=== PATIENT | male | born 1940 | race Caucasian/White ===

== ENCOUNTER → 2023-06-30 06:33 | Day surgery (SDC) | payer MEDICARE, OTHER, SELFPAY | LOC: GI 06:33 | PROVIDERS: ATTENDING PHYSICIAN Internal Medicine Gastroenterology | DX: Z12.11 Encounter for screening for malignant neoplasm of colon (principal); K57.30 Diverticulosis of large intestine without perforation or abscess without bleeding; D12.2 Benign neoplasm of ascending colon; D12.4 Benign neoplasm of descending colon; K63.5 Polyp of colon; R12 Heartburn; K44.9 Diaphragmatic hernia without obstruction or gangrene; K31.7 Polyp of stomach and duodenum; K31.89 Other diseases of stomach and duodenum; K21.00 Gastro-esophageal reflux disease with esophagitis, without bleeding; K31.A0 Gastric intestinal metaplasia, unspecified; Z86.010 Personal history of colon polyps | CPT/HCPCS: 45385; 43239; 88305 ==

== ENCOUNTER 2023-08-03 09:05 | Inpatient (IN) | payer MEDICARE, OTHER, SELFPAY ==
[2023-08-01 20:03] VITALS: BP 137/61
[2023-08-01 20:13] VITALS: BP 150/81
[2023-08-01 20:15] LABS: Glucose - Point of Care 180 mg/dl (70-99)
[2023-08-01 20:16] VITALS: BMI 26.1
--- NOTE | 2023-08-01 20:24 | EDRN ---
Patient brought back from triage and placed in gown and on monitor, NIH completed and Dr. Ricks aware of patient, symptoms did start around noon this afternoon, myself and Dr. ricks at bedside speaking with patient and family about history and
recent admission to [place].
[2023-08-01 20:33] LABS: % Basophils 0.6 % (0-2); % Eosinophils 2.9 % (0-6); % Immature Granulocytes 0.2 % (0-0.5); % Lymphocytes 9.2 % (20.5-51.1); % Neutrophils 79.1 % (42.2-75.2); Absolute Basophils 0.1 10^3/uL (0-0.2); Absolute Eosinophils 0.3 10^3/uL (0-0.7); Absolute Lymphocytes 0.8 10^3/uL (1.2-3.4); Absolute Monocytes 0.7 10^3/uL (0.1-0.6); Absolute Neutrophils 7.1 10^3/uL (1.4-6.5); Hemoglobin 10.5 g/dL (13.0-18.0); Mean Corpuscular Hgb 31.5 pg (27.0-31.0); Mean Corpuscular Volume 90.1 fL (80.0-94.0); Mean Platelet Volume 11.3 fL (7.4-10.4); Nucleated Red Blood Cells % 0 % (-); Platelet Count 177 10^3/uL (130-400); Red Blood Cell Count 3.33 10^6/uL (4.70-6.10); Red Cell Dist. Width 14.6 % (11.5-14.5)
--- NOTE | 2023-08-01 20:42 | ED.CVA ---
History of Present Illness
General
Chief Complaint: CVA/TIA Symptoms
Source: patient and family
Exam Limitations: none
Time Seen by Provider: 08/01/23 20:21
Onset of Stroke Symptoms
Onset of symptoms known: Yes
Date of onset of symptoms: 08/01/23
Travel History
Have you had any contact with someone who has COVID-19?: No
Do you have any symptoms of coronavirus? Fever > 100 degrees, chills, cough, shortness of breath, sore throat, loss of taste or smell, muscle aches, or headache?: No
History of Present Illness
History of Present Illness:
See MDM
Past History
Past History
ED Past Medical History: CAD, Cancer, HTN, Seizures and Other (Heart block)
ED Past Surgical History: Cardiac
Social History
Tobacco: Non-smoker
Alcohol: None
Drug: None
Personal:
Living: with family
Employment: Retired
Family History
Family History: Other
Phy Exam
Physical Exam
Physical Exam:
See MDM
Scores
NIH Stroke Score
Level of Consciousness: 0 - Alert
LOC Questions: 0-Answers both correctly
LOC Commands: 0-Performs both correctly
Best Horizontal Gaze: 0-Normal
Visual Ware: 0=Normal, no visual loss
Facial Palsy: 0=Normal, symmetrical
Motor - Right Arm: 0=No drift 10 seconds
Motor - Left Arm: 0=No drift 10 seconds
Motor - Right Le-No drift 5 seconds
Motor - Left Le-No drift 5 seconds
Limb Ataxia: 0-Absent
Sensation: 0-Normal
Best Language: 0-No aphasia
Dysarthria: 0-Normal
Extinction and Inattention: 0-No abnormality
Total Score:: 0
Course
Orders/Labs/Results
Orders:
Orders
08/01/23 20:23
Cardiac Monitoring- Treatment ONCE
IV Insert/Care/Rem.- Treatment PRN
Vital Signs As Directed
Frequency: Other
Weight As Directed
Frequency: Once
Comment: ZERO STRETCHER SCALE FOR ACCURATE WEIGHT
08/01/23 20:27
Complete Blood Count/With Diff Urgent
Comprehensive Metabolic Panel Urgent
Keppra (Levetiracetam) [S] Urgent
PTT Urgent
Prothrombin Time Urgent
Troponin I Urgent
08/01/23 20:40
CT Head & Neck Angio W/wo IV Urgent
Comment:
Reason For Exam: R hand weakness since 12 pm
08/01/23 22:29
NEUROLOGY CONSULT Routine
Consulting Provider: Ora Ceballos
Was physician already notified: Yes
Clopidogrel Bisulfate [Plavix] 75 mg PO NOW STA
Abnormal Lab Results
08/01/23 08/01/23
20:07 20:27
RBC 3.33 L 10^6/uL
(4.70-6.10)
Hgb 10.5 L g/dL
(13.0-18.0)
Hct 30.0 L %
(39.0-52.0)
MCH 31.5 H pg
(27.0-31.0)
RDW 14.6 H %
(11.5-14.5)
MPV 11.3 H fL
(7.4-10.4)
Absolute Neuts (auto) 7.1 H 10^3/uL
(1.4-6.5)
Absolute Lymphs (auto) 0.8 L 10^3/uL
(1.2-3.4)
Absolute Monos (auto) 0.7 H 10^3/uL
(0.1-0.6)
Neutrophils % 79.1 H %
(42.2-75.2)
Lymphocytes % 9.2 L %
(20.5-51.1)
BUN 41 H mg/dl
(9-20)
Creatinine 1.6 H mg/dL
(0.7-1.3)
Glucose 148 H mg/dl
(70-99)
Total Bilirubin 1.4 H mg/dl
(0.2-1.3)
POC Glucose 180 H mg/dl
(70-99)
08/01/23 20:27
08/01/23 20:27
Vital Signs
Initial and Last Documented VS:
Initial Vital Signs
Temp Pulse Resp BP Pulse Ox
98.1 F 72 16 137/61 98
08/01/23 20:03 08/01/23 20:03 08/01/23 20:03 08/01/23 20:03 08/01/23 20:03
Last Documented Vital Signs
Temp Pulse Resp BP Pulse Ox
98.1 F 74 16 126/63 98
08/01/23 20:03 08/01/23 21:30 08/01/23 21:30 08/01/23 21:00 08/01/23 21:30
MDM/Problems Addressed
Differential Diagnosis Includes:
HPI and MDM Narrative:
82-year-old male presenting with right hand weakness since 12 PM today. Family concerned about possible stroke. Patient was recently admitted to [facility]. Few weeks ago, patient felt weak and he had seizure activity. He was admitted and
had CT head performed. He was told that there was evidence of old strokes which is new to him. Family states that they performed LP and he was seen by neurology and had a EEG and started on Keppra. Patient was also started on amlodipine for
elevated blood pressure.
Patient has a recent diagnosis of prostate cancer. He is supposed to start radiation in the next week or so.
Physical exam
General: Well appearing and non-toxic
HEENT: protecting airway
Neck: appears supple
CV: No evidence of cyanosis
Resp: No accessory muscle use
Abd: Non-distended
Extremities: No deformities
Neuro: alert. 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 Sensation otherwise neurovascular intact
Psych: Normal affect
Skin: Intact
Problems Addressed including Acute and Chronic Conditions affecting care:
1. Strokelike symptoms
Acuity: acute
Prognosis: stable
Details: NIH is technically 0. He has no drift but he does have significant weakness with right hand grasp. Will obtain CT angiogram looking for evidence of stroke or possible spinal stenosis
Updates
CT angiogram head and neck negative. Case discussed with neurology. Will start Plavix as possible stroke and admit
Differential Diagnosis (but not limited to): Stroke, spinal stenosis
Testing considered: CT cervical spine
Drug therapy (if applicable): OTC meds, please see d/c instruction regarding Rx drugs
Amount and/or Complexity of Data Reviewed
Clinical info obtained from: Patient
External data reviewed: N/A
Labs I independently reviewed (but not limited to): Anemia, elevated creatinine
Radiology: The CT scan was personally and independently reviewed. In addition, official CT report reviewed.
Pulse Ox: not hypoxic
EKG independently reviewed: ventricular paced rhythm, wide QRS, no STEMI
Instrumentation Instructor: Paced rhythm
Critical Care: N/A
Risk of Complication:
Social Determinants of health: Good social support
Discussed with other providers: hospitalist, neurologist
Escalation of Care includes Admit/Obs: Given the concern for possible CVA, will admit
Occasional wrong word or 'sound a like' substitutions may have occurred due to the inherent limitations of voice recognition software. Read the chart carefully and recognize, using context, where substitutions have occurred.
*Critical Care Note
Total Time (30-74mins, 75-104mins- exclusive of procedures): Not Applicable
ED Attending Note
-
Portions of this chart may have been created with voice recognition software.� Occasional wrong word or��sound alike� substitutions may have occurred due to the inherent limitations of voice recognition software.
Discharge Plan
Departure
Patient Disposition: Admit
Date of Disposition: 08/01/23
Time of Disposition: 22:33
Admit to: Telemetry
Presentation/result/management discussed w/ accepting MD/DO: Hospitalist
Discharge Problem:
Right hand weakness
Prescriptions:
No Action
atorvastatin 80 mg Tablet
80 mg PO QPM
carvedilol 25 mg Tablet
25 mg PO BID
levetiracetam 500 mg Tablet
500 mg PO Q12H@0900,2100
aspirin 81 mg Tablet,Delayed Release (Dr/Ec)
81 mg PO DAILY
calcium carbonate [Caltrate 600] 600 mg calcium (1,500 mg) Tablet
600 mg PO BID
amlodipine 10 mg Tablet
10 mg PO DAILY
pantoprazole 40 mg Tablet,Delayed Release (Dr/Ec)
40 mg PO BID
ibuprofen [Advil] 200 mg Tablet
200 mg PO DAILYPRN PRN (Reason: mild pain)
ezetimibe 10 mg Tablet
10 mg PO DAILY
icosapent ethyl [Vascepa] 1 gram Capsule
2 g PO BID
Orgovyx 120 mg Tablet
120 mg PO DAILY
Iron + Vitamin C
1 tab PO DAILY
cholecalciferol (vitamin D3)
1 tab PO QPM
Referrals:
Abby Rashid DO [Family Provider] -
Interventions
Interventions:
*Risk Screen - Suicide Last Done: 08/01/23 20:03
*General Assessment Last Done: 08/01/23 20:03
*Neglect/Abuse Screening Last Done: 08/01/23 20:03
ED- Fall Risk Assessment Last Done: 08/01/23 20:24
ED- Pulmonary Assessment Last Done: 08/01/23 20:24
ED- Neurological Assessment Last Done: 08/01/23 20:24
ED- Cardiac Assessment Last Done: 08/01/23 20:24
Discharge Date and Time
Print Language: BURUNDIAN
[2023-08-01 20:44] LABS: APTT 30.3 Sec (23.4-35.0); INR 0.97; PT 12.7 Sec (11.4-14.6)
[2023-08-01 20:46] LABS: ALT (SGPT) 41 U/L (0-50); AST (SGOT) 35 U/L (17-59); Albumin 4.1 g/dl (3.5-5.0); Alkaline Phosphatase 58 U/L (38-126); Blood Urea Nitrogen 41 mg/dl (9-20); Calcium 9.1 mg/dl (8.4-10.2); Carbon Dioxide 26 mmol/L (22-30); Chloride 107 mmol/L (98-107); Estimated Creatinine Clearance 39 ml/min; Glucose 148 mg/dl (70-99); Sodium 139 mmol/L (135-145); Total Bilirubin 1.4 mg/dl (0.2-1.3); Total Protein 6.8 g/dl (6.3-8.2); eGFR 43.02
[2023-08-01 20:58] LABS: Troponin I 0.019 ng/ml
[2023-08-01 21:00] VITALS: BP 126/63
--- NOTE | 2023-08-01 21:25 | EDRN ---
Patient returned to room from CT, monitor all hooked up, patient pulled up in bed for better comfort, went over plan with patient and family more, asking about info once discharged, informed them that follow up and consults are generally placed on
paperwork, but can always get them info if needed. Plan is for patient to be admitted, patient and family do know that, patient with no complaints at this time, will continue to monitor.
--- NOTE | 2023-08-01 22:02 | EDRN ---
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
placed in belonging bag, no further needs, will continue to monitor.
--- NOTE | 2023-08-01 22:30 | EDRN ---
Patient ambulated to the restroom and back in bed resting comfortably, call esquivel in reach, family went home, placed number on white board incase needed.
--- NOTE | 2023-08-01 22:45 | HPS.HSE ---
Addendum entered and electronically signed by Arnulfo Eldridge DO 08/01/23 23:46:
Patient seen and examined independently. Agree with findings and plan as set forth by ALFONSO Puri.
Patient is an 82y M with PMH significant for ASCVD, hypertension, CKD and recent admission at [facility] for suspected seizure activity who presents to ED complaining of R hand weakness. Patient states that he was at his computer today around noon
when he began to have difficulty moving the mouse. He had significant weakness and ataxia in the R hand. No apparent weakness in the elbow or shoulder. No headache. No weakness or ataxia of the RLE. Patient was brought to the ED for further
evaluation and treatment. He was admitted at [facility] about 2 weeks ago and started on Keppra for presumed seizure activity. No other new medications, etc.
Patient denies any trauma, injury, etc.
Ass:
R Hand Weakness / Ataxia
ASCVD
Hypertension
CKD III
Suspected Seizure Disorder
Anemia
Heart Block s/p PPM
GERD
Prostate Cancer
Plan:
Observe overnight for further evaluation and treatment.
CTA done in the ED today without evidence of acute CVA.
Unable to obtain MRI due to incompatible pacemaker.
Plavix added to current regimen.
Neuro evaluation in the AM.
PT / OT evaluations.
? adverse effect of new medication / Keppra, but seems less likely given extremely focal nature of deficit.
Will continue Keppra for now. Follow for any seizure activity. Obtain records from [facility].
Follow for any new / worsening symptoms.
Work-up worsened anemia (Hgb 10 down from 12.9).
Original Note:
Family Physician
-
Family Physician: Abby Rashid DO
Chief Complaint
-
right hand weakness
History of Present Illness
82-year-old male complaining of right hand weakness operating the mouse trying to bet on a horse race at 12 PM today while .His family was concerned about a stroke. He had recent admission to [facility] because person came to his door
said he was drooling and looked like going to pass out . He apparently had a seizure in the ambulance on way to the hospital. When got to hospital he was agitated and confused .He had CT head showing old strokes he had LP performed he was also
seen by neurology and had nml EEG and was started on Keppra for seizures. He was also started on amlodipine for hypertension. His states that he has had memory impairment forgetting things on off since July 16. they have home nurses come
since d/c and a OT and Pt visit. Other past medical history includes CVA per CT at [facility], new onset seizures, prostate cancer new diagnosis few weeks ago except for radiation with [facility] [address] radiation oncology in [place] meeting next week, HTN,
CKD 3B, CAD/OR/CABG x 5 vessel 2018, heart block�permanent pacemaker, GERD.
Medical History
Past Medical History
Past Medical History: Reports Other
Additional Past Medical History:
Old CVA's per CT at [facility]
new onset seizures July 17, 2023 [facility]
prostate cancer new diagnosis few weeks ago except for radiation with [facility] [address] radiation oncology in [place] meeting next week
HTN
CKD 3B
CAD/OR/CABG x 5 vessel 2018
heart block�permanent pacemaker-has had 3 they are not MRI compatible
GERD.
Past Surgical History: Reports Other
Additional Past Surgical History:
Cardiac bypass x 5 in 2018 at [facility]
Mitral Valve replacement
Tonsillectomy
Cholecystectomy
[place] teeth extraction
Social History
Tobacco: Non-smoker
Alcohol: None
Drug: None
Personal:
Living: With Family ( natalie )
Employment: Retired
Family History
Family History: Other (dad pancreatic cancer, mother alzheimers, Brother - age 73 Brain hemorrhage 2018)
Allergies / Home Medications
Allergies reflects when Allergies were last updated in [employer].
Home Medications with original date entered in [employer]
Allergy/Medication List:
Allergies
Allergy/AdvReac Type Severity Reaction Status Date / Time
No Known Allergies Allergy Verified 04/19/22 14:05
Home Medications
Iron + Vitamin C 1 tab PO DAILY 08/01/23
amlodipine 10 mg tablet 10 mg PO DAILY 08/01/23
aspirin 81 mg tablet,delayed release 81 mg PO DAILY 08/01/23
atorvastatin 80 mg tablet 80 mg PO QPM 08/01/23
calcium carbonate 600 mg PO BID 08/01/23
carvedilol 25 mg tablet 25 mg PO BID 08/01/23
cholecalciferol (vitamin D3) 1 tab PO QPM 08/01/23
ezetimibe 10 mg tablet 10 mg PO DAILY 08/01/23
ibuprofen 200 mg tablet (Advil) 200 mg PO DAILYPRN PRN mild pain 08/01/23
icosapent ethyl 1 gram capsule (Vascepa) 2 g PO BID 08/01/23
levetiracetam 500 mg tablet 500 mg PO Q12H@0900,2100 08/01/23
pantoprazole 40 mg tablet,delayed release 40 mg PO BID 08/01/23
relugolix 120 mg tablet (Orgovyx) 120 mg PO DAILY 08/01/23
Review of Systems
-
History Source: Patient and Family ( )
Constitutional: Denies Fever or Chills
EENT: Denies Tearing or Runny Nose
Respiratory: Denies Cough or Trouble Breathing
Cardiac: Denies Chest Pain, Diaphoresis, Palpitations or Syncope
Abdomen/GI: Denies Abdominal Pain, Nausea, Vomiting, Diarrhea, Constipated, Bloody Stools or Black Stools
: Denies Dysuria, Frequency, Flank Pain or Incontinence
Musculoskeletal: Reports Other (Right wrist drop, weak grasp, discoordination right hand); Denies Joint Pain, Joint Swelling or Edema
Skin: Denies Itching or Rash
Neurological: Reports Other (Mild memory impairment unsure of some recent events since July 16 visit to [facility]); Denies Dizzy, Headache or Weakness
Endocrine: Reports No Symptoms
Hematologic/Lymphatic: Reports No Symptoms
Psych: Reports Calm
Physical Exam
Vital Signs
Vital Signs
Temp Pulse Resp BP Pulse Ox
98.1 F 74 16 126/63 98
08/01/23 20:03 08/01/23 21:30 08/01/23 21:30 08/01/23 21:00 08/01/23 21:30
Physical Exam
General: Comfortable and Conversant; No Pain, Fever or Chills
HEENT: NormoCephalic, Anicteric, Moist mucous membranes, PERRLA, [place] Conjunctivae, No Ptosis and Neck Nontender
Respiratory: Clear; No Wheezes, Rales or Rhonchi
Cardiac: S1/S2 and Regular Rhythm; No Murmur, Rub, Gallop or Peripheral Edema
Breast: Deferred by me
GI: Soft, Non Tender, Non Distended, Normal Bowel Sounds and No Hepatosplenomegaly
Genito-urinary: Deferred by me
Musculoskeletal: No Clubbing, No Cyanosis, No Edema and Other (Right wrist drop, difficulty extension of the right wrist and index finger, unable to touch fingers to thumb, weak grasp, discoordination right hand patient [id number])
Skin: Warm and Dry; No Rash
Neuro: AO x 3 (With some forgetfulness regarding recent medical events since July 17, 2023), Cranial Nerves Intact, No Sensory Deficits and Other (Right wrist drop, difficulty extension of the right wrist and index finger, unable to touch fingers to
thumb, weak grasp, discoordination right hand patient [id number]); No Slurred Speech, Facial Droop or Tremors
Psych: Calm
Laboratory Results
-
08/01/23 20:27
08/01/23 20:27
Laboratory Results
PT 12.7 Sec (11.4-14.6) 08/01/23 20:
INR 0.97 08/01/23 20:
APTT 30.3 Sec (23.4-35.0) 08/01/23 20:
Total Bilirubin 1.4 mg/dl (0.2-1.3) H 08/01/23 20:
AST 35 U/L (17-59) 08/01/23 20:
ALT 41 U/L (0-50) 08/01/23 20:
Alkaline Phosphatase 58 U/L (38-126) 08/01/23 20:
Troponin I 0.019 ng/ml 08/01/23:
Impression/Plan
-
Impression/plan:
Observation telemetry
#Right hand weakness concern for CVA/TIA
[id number]
#History of strokes�was revealed on CT head imaging at [facility]
-Plavix 75 mg given in ER ,continue 75 mg daily
-Continue aspirin 81 mg daily, atorvastatin 80 mg every afternoon, Vascepa 2 g twice daily, Zetia 10 mg daily
-Check lipid profile, HgbA1c
- Pt/Ot/case mgmt
Head and neck CTA: No evidence of acute intracranial abnormality
No significant stenosis in the common carotid arteries, carotid bulbs or proximal internal carotid arteries bilaterally
No large vessel occlusion of the intracranial circulation
No narrowing of the vertebral or basilar arteries
#History recent New onset seizures in ambulance on way to hospital
Was treated at [facility] but per had normal EEG
-Continue Keppra 500 mg every 12 hours, check Keppra level
# Current Prostate cancer - New dx at [facility]
Pet scan nml per
had tattoo hawkins made on Thursday 4 days ago for upcoming radiation
-Due to start radiation next week in [place] radiation Onc at [place]
-cont Relugolix 120 mg daily
#HTN�benign
126/63
-Continue carvedilol 25 mg twice daily, amlodipine 10 mg daily
#HLD
-check lipid profile
-Continue Vascepa 2 g p.o. twice daily, Zetia 10 mg daily, atorvastatin 80 mg every afternoon
#CKD 3B
-Creat 1.6 is at baseline
-follows with Cl[facility]her in [place]
#GERD
-Continue Protonix 40 mg twice daily
#CAD/OR/CABG x 5 vessel 2018
-Continue aspirin 81 mg daily, Lipitor, beta-claudia
#Permanent pacemaker/Hx heart block
3rd Pacemaker NOT MRI compatible per Pt and
#Normocytic anemia
Hgb 10.5, MCV 90.1(was prior 12.9 in April 2022)
dvt proph
scd's
Full code
[2023-08-01] MEDS: PLAVIX 75 MG PO (22:52)
[2023-08-01 23:01] VITALS: BP 153/73
--- NOTE | 2023-08-01 23:03 | EDRN ---
Hospitalist at bedside working on admission orders.
[2023-08-02] VITALS (10 sets, daily range): BP systolic 109–149; BP diastolic 55–75; PULSE 71; O2SAT 98; BMI 24.9
--- NOTE | 2023-08-02 00:41 | EDRN ---
Patient resting, waiting on room assignment, call esquivel in reach.
--- NOTE | 2023-08-02 00:48 | EDRN ---
No Delay sent to the floor, patient remains resting comfortably with call esquivel in reach.
--- NOTE | 2023-08-02 04:53 | PTCARENOTE ---
Patient arrived via stretcher from ED, patient ambulated to bed with assistance. See chart for admission, nursing shift assessment and further details.
[2023-08-02 07:54] LABS: % Basophils 0.4 % (0-2); % Eosinophils 3.1 % (0-6); % Immature Granulocytes 0.5 % (0-0.5); % Lymphocytes 12.3 % (20.5-51.1); % Monocytes 7.4 % (1.7-9.3); % Neutrophils 76.3 % (42.2-75.2); Absolute Eosinophils 0.3 10^3/uL (0-0.7); Absolute Monocytes 0.6 10^3/uL (0.1-0.6); Absolute Neutrophils 6.2 10^3/uL (1.4-6.5); Hematocrit 27.5 % (39.0-52.0); Hemoglobin 9.3 g/dL (13.0-18.0); Mean Corp Hgb Conc. 33.8 g/dL (33.0-37.0); Mean Corpuscular Hgb 30.6 pg (27.0-31.0); Mean Corpuscular Volume 90.5 fL (80.0-94.0); Mean Platelet Volume 12.1 fL (7.4-10.4); Nucleated Red Blood Cells % 0 % (-); Platelet Count 143 10^3/uL (130-400); Red Blood Cell Count 3.04 10^6/uL (4.70-6.10); Red Cell Dist. Width 14.6 % (11.5-14.5); White Blood Cell Count 8.1 10^3/uL (4.8-10.8)
[2023-08-02 08:09] LABS: Blood Urea Nitrogen 36 mg/dl (9-20); Carbon Dioxide 23 mmol/L (22-30); Chloride 109 mmol/L (98-107); Estimated Creatinine Clearance 41 ml/min; Glucose 126 mg/dl (70-99); HDL Cholesterol 70 mg/dl; LDL Cholesterol, Calculated 42 mg/dl; Potassium 4.1 mmol/L (3.5-5.1); Sodium 138 mmol/L (135-145); Total Cholesterol 126 mg/dl (50-199); Triglyceride 74 mg/dl (10-149); Very Low Density Lipoprotein 14 mg/dl (0-30); eGFR 46.48
[2023-08-02 08:10] LABS: Iron 69 ug/dl (49-181)
[2023-08-02] MEDS: FEOSOL 325 MG PO (08:22)
[2023-08-02] MEDS: PROTONIX 40 MG PO ×2 (08:22→20:22)
[2023-08-02] MEDS: NORVASC 10 MG PO (08:22)
[2023-08-02] MEDS: ZETIA 10 MG PO (08:22)
[2023-08-02] MEDS: OSCAL CAL 500 500 MG PO ×2 (08:22→20:22)
[2023-08-02] MEDS: PLAVIX 75 MG PO (08:22)
[2023-08-02] MEDS: VITAMIN C 500 MG PO (08:22)
[2023-08-02] MEDS: ASPIR LOW (ENTERIC COATED) 81 MG PO (08:22)
[2023-08-02] MEDS: COREG 25 MG PO ×2 (08:24→20:22)
[2023-08-02] MEDS: KEPPRA 500 MG PO ×2 (08:24→21:21)
[2023-08-02 08:27] LABS: Percent Saturation 23 % (20-50); Total Iron Binding Capacity 296 ug/dl (261-462)
[2023-08-02 08:55] LABS: VerifyNow Aspirin 535 ARU
--- NOTE | 2023-08-02 10:47 | W.PN.HOSP.TC ---
Today's Communication/Plan
-
.
Assessment / Plan
Assessment / Plan
Physical Exam
General: Comfortable and Conversant; No Pain, Fever or Chills, chronically ill looking.
HEENT: Normocephalic, Anicteric, Moist mucous membranes, PERRLA, [place] Conjunctivae, No Ptosis and Neck Nontender
Respiratory: Clear; No Wheezes, Rales or Rhonchi
Cardiac: S1/S2
GI: Soft, Non Tender, Non Distended, Normal Bowel Sounds and No Hepatosplenomegaly
Genito-urinary: NO Wu.
Musculoskeletal: No Clubbing, No Cyanosis, No Edema.
Skin: Warm and Dry; No Rash
Neuro: Awake, alert, could not recall the year and had trouble remembering name of the hospital. He could not recall details about his medical history, he knew [place] state. He followed commands.
Psych, calm, pleasant, no agitation.
#Right hand weakness concern for CVA/TIA
[id number]
#History of strokes�was revealed on CT head imaging at [facility]
-Plavix 75 mg given in ER ,continue 75 mg daily
-Continue aspirin 81 mg daily, atorvastatin 80 mg every afternoon, Vascepa 2 g twice daily, Zetia 10 mg daily
- LDL 42
HgbA1c is pending
- Pt/Ot/case mgmt
Appreciate neurology input
Head and neck CTA: No evidence of acute intracranial abnormality
No significant stenosis in the common carotid arteries, carotid bulbs or proximal internal carotid arteries bilaterally
No large vessel occlusion of the intracranial circulation
No narrowing of the vertebral or basilar arteries
#History recent New onset seizures in ambulance on way to hospital
Was treated at [facility] but per had normal EEG
-Continue Keppra 500 mg every 12 hours, check Keppra level
# Current Prostate cancer - New dx at [facility]
Pet scan nml per
had tattoo hawkins made on Thursday 4 days ago for upcoming radiation
-Due to start radiation next week in [place] radiation Onc at [place]
-cont Relugolix 120 mg daily
#HTN�benign
125/59
-Continue carvedilol 25 mg twice daily, amlodipine 10 mg daily
#HLD
LDL 42
-Continue Vascepa 2 g p.o. twice daily, Zetia 10 mg daily, atorvastatin 80 mg every afternoon
#CKD 3B
-Creat 1.6 is at baseline. Today is 1.5
-follows with [facility] Install[facility] Supervisor in [place]
#GERD
-Continue Protonix 40 mg twice daily
#CAD/NE/CABG x 5 vessel 2018
No chest pain
-Continue aspirin 81 mg daily, Lipitor, beta-claudia
#Permanent pacemaker/Hx heart block
3rd Pacemaker NOT MRI compatible per Pt and
#Normocytic anemia
Known GI bleeding, suspect chronic blood loss anemia.
Hgb 10.5, MCV 90.1(was prior 12.9 in April 2022)
dvt proph
scd's
Full code
Total time spent to see the patient, examine the patient on the floor, review data and lab results, discuss treatment plan with patient, and nursing staff around 55 minutes
Anticipated Discharge: 24 - 48 hours
Subjective/Interval History
-
Date of Service: August 02, 2023
He reports memory issues
No chest pain
No sob
Objective Data
-
Labs:
Laboratory Results
08/02/23
07:03
WBC 8.1
Hgb 9.3 L
Hct 27.5 L
Plt Count 143
Sodium 138
Potassium 4.1
Chloride 109 H
Carbon Dioxide 23
BUN 36 H
Creatinine 1.5 H
Glucose 126 H
Calcium 9.0
Vital Signs:
Vital Signs
Temp Pulse Resp BP Pulse Ox
98.4 F 71 17 125/59 97
08/02/23 07:25 08/02/23 08:22 08/02/23 07:25 08/02/23 08:22 08/02/23 07:25
I&O
08/01/23 08/02/23 08/03/23
06:59 06:59 06:59
Intake Total 30 / 30
Output Total 650 / 650
Balance -620 / -620
--- NOTE | 2023-08-02 11:54 | CON.NEURO4 ---
Consultation - Neurology 4
-
CONSULTING PHYSICIAN: Lin
REFERRING PHYSICIAN: Rambo
DICTATED BY: Lin
DATE/TIME OF REQUEST: 08/01/23 late evening
DATE/TIME OF CONSULTATION: 08/02/23
Reason for Consultation: stroke
History of Present Illness:
82-year-old male with old strokes seen on head CT at [facility] and new onset seizure earlier this month diagnosed at [facility] now on Keppra admitted after abrupt onset of right hand weakness yesterday around noon. He was using a computer when it
started and he had difficulty moving his mouse. He also experienced some ataxia with the right hand. No other focal neurological deficits. No weakness in the rest of the right arm or right leg. Previous strokes were seen on head CT incidentally
but he denies any symptoms with them. No associated confusion or seizure-like activity. He has been compliant with Keppra since recently being diagnosed with seizure at [facility] and has a follow-up appointment with [facility]
in October. He was out of the window for TNK upon arrival in the ER. His NIH stroke scale was 0.
PMH:
Old CVA on CT at [facility]
new onset seizures diagnosed July 17, 2023 at [facility]
prostate cancer
HTN
CKD 3B
CAD/MT/CABG x 5 vessel 2017
heart block�permanent pacemaker
GERD.
PSH:
Cardiac bypass x 5 in 2018 at [place]
Mitral Valve replacement
Tonsillectomy
Cholecystectomy
[place] teeth extraction
Social History
Tobacco: Non-smoker
Alcohol: None
Drug: None
Personal:
Living: With Family ( natalie )
Employment: Retired
Family History
Family History: dad with pancreatic cancer, mother with alzheimers, brother with ICH
Allergies
No Known Allergies Allergy (Verified 04/19/22 14:05)
Home Medications
�Medication �Instructions �Recorded
Iron + Vitamin C 1 tab PO DAILY Supplement 08/01/23
amlodipine 10 mg tablet 10 mg PO DAILY Blood Pressure 08/01/23
aspirin 81 mg tablet,delayed 81 mg PO DAILY Blood Clot 08/01/23
release Prevention/Tx
atorvastatin 80 mg tablet 80 mg PO QPM High Cholesterol 08/01/23
calcium carbonate 600 mg PO BID Supplement 08/01/23
carvedilol 25 mg tablet 25 mg PO BID Blood Pressure 08/01/23
cholecalciferol (vitamin D3) 1 tab PO QPM Supplement 08/01/23
ezetimibe 10 mg tablet 10 mg PO DAILY High Cholesterol 08/01/23
ibuprofen 200 mg tablet (Advil) 200 mg PO DAILYPRN PRN mild pain 08/01/23
icosapent ethyl 1 gram capsule 2 g PO BID Antilipemic Agent, 08/01/23
(Vascepa) [place]-
levetiracetam 500 mg tablet 500 mg PO Q12H@0900,2100 Seizures 08/01/23
pantoprazole 40 mg tablet,delayed 40 mg PO BID GERD 08/01/23
release
relugolix 120 mg tablet (Orgovyx) 120 mg PO DAILY Antineoplastic 08/01/23
Agent
Review of Symptoms:
Patient denies any fever, headache, chest pain, shortness of breath, GI or symptoms.
�Per the HPI.�All systems are reviewed negative except above.
Vital Signs
Temp Pulse Resp BP Pulse Ox
98.4 F 71 17 125/59 97
08/02/23 07:25 08/02/23 08:22 08/02/23 07:25 08/02/23 08:22 08/02/23 07:25
Lab Results
08/02/23 07:03
08/02/23 07:03
PT 12.7 Sec (11.4-14.6) 08/01/23 20:27
INR 0.97 08/01/23 20:27
APTT 30.3 Sec (23.4-35.0) 08/01/23 20:27
Sodium 138 mmol/L (135-145) 08/02/23 07:03
Potassium 4.1 mmol/L (3.5-5.1) 08/02/23 07:03
BUN 36 mg/dl (9-20) H 08/02/23 07:03
Glucose 126 mg/dl (70-99) H 08/02/23 07:03
Calcium 9.0 mg/dl (8.4-10.2) 08/02/23 07:03
LDL Cholesterol, Calc 42 mg/dl 08/02/23 07:03
Physical Exam:
The patient is afebrile, heart sounds S1 and S2 are regular, and chest is clear to auscultation bilaterally.
NIH Stroke Scale:
I performed the NIH stroke scale on the patient on 08/01/20 at 1300. The patient scored 0 points on the NIH stroke scale assessment.
Neurologic Examination:
The patient is awake, alert and oriented x 3. (He/She) is able to follow commands and answer questions appropriately. There is no aphasia or dysarthria. On cranial nerve assessment, pupils are 3 mm bilateral, round and reactive to light and
accommodation. Visual bethea are full. Extraocular movements are intact. Facial sensations are intact and bilaterally symmetrical, there is no facial asymmetry. Hearing is intact bilaterally to normal conversation volume. Tongue palate and uvula
are midline. Sternocleidomastoid strengths are full bilaterally. Motor strengths are 5/5 bilateral upper and lower extremities on medical research [place] scale beyond R hand assignment desk editor weakness, 3/5, and R wrist flexion/extension 2/5. There is no drift
or involuntary movement noted. Deep tendon reflexes are 1+ bilateral upper and lower extremities and Babinski is absent bilaterally. Sensations of pain, touch, temperature and vibration are intact and bilaterally symmetrical. There was no extinction
noted on double simultaneous stimulation. Coordination is intact by finger to nose bilaterally.
Neuro Imaging:
CTA head/neck:
No evidence of acute intracranial abnormality. If there remains high clinical concern for acute infarction and further imaging evaluation is desired, consideration for MRI, if there are no contraindications.
No evidence for hemodynamically significant stenosis involving the common carotid arteries, carotid bulbs, or proximal internal carotid arteries bilaterally.
No evidence for large vessel occlusion of the intracranial circulation.
No significant narrowing of the vertebral or basilar arteries. No significant narrowing of the posterior cerebral arteries.
Impression:
LORETO ZAPATA is a 82 year old M who has presented to the hospital with isolated R hand weakness that began yesterday around noon.
Differentials for the patient's presentation include:
1. stroke
2. mononeuropathy
3. cervical radiculopathy
Patient has the following risk factors for their symptoms: age, prostate cancer, CAD, htn, CKD
IV Tenecteplase/IAT candidacy: not a candidate given out of window, low NIHSS, no clot on CTA
Recommendations:
-check MRI brain without contrast to evaluate for stroke--need to wait until Thursday as he has a pacer; consider Cspine imaging if MRI brain negative for stroke; sent pacer info to MRI techs; MRI dept will research compatibility tomorrow
-CTA reviewed; see above
-BP goal is normotension.
-continue ASA 81mg daily, Plavix added as well.
- Hemoglobin A1C is mildly elevated at 6.0. Goal is normoglycemia.
- continue atorvastatin 80 mg by mouth daily at bedtime and Zetia; on both at home. LDL at goal at 42. Goal LDL after stroke is <70.
-check echo if MRI + for stroke
-PT/OT/ST evaluations
- DVT prophylaxis
-continue neurochecks
-continue Keppra; request records from [facility]
Discussed patient care with: patient, Dr. Ricks
--- NOTE | 2023-08-02 12:43 | CM ---
Addendum entered by Rajwinder Solitario 08/02/23 13:00:
Spoke with pt and family - requested [facility] - will send referral in [facility]
Plan - anticipate acute rehab when medically ready
Original Note:
Met with pt and his at bedside
Pt lives with his in a one story home
Some assist needed with ADL's, ambulates with rolling walker
DME - rolling walker, shower chair, elevated toilet seat, grab bars in shower and at toilet
SNF - no past hx
HH - Past [facility] PT/OT/RN
Has ride at d/c
PCP - Dr Marco A Rashid
Pharm - [facility]
PT/OT recommending Acute rehab - family given option list of rehabs
Plan - anticipate acute rehab when medically ready
--- NOTE | 2023-08-02 15:32 | PTCARENOTE ---
Pt is alert and oriented x3, but can be a bit forgetful at times. Denies any pain. Tolerating diet well. Pt is an assist x1 OOB with the walker and has been ambulating to the bathroom, sometimes gait a bit unsteady. NIH remains a 1. VSS. Pt
currently resting in bed. Family at the bedside. Call esquivel is within reach.
[2023-08-02] MEDS: LIPITOR 80 MG PO (17:00)
[2023-08-03] VITALS (7 sets, daily range): BP systolic 109–157; BP diastolic 49–65; PULSE 69; O2SAT 100
[2023-08-03 06:58] LABS: Hematocrit 29.6 % (39.0-52.0); Mean Corp Hgb Conc. 33.8 g/dL (33.0-37.0); Mean Corpuscular Hgb 31.3 pg (27.0-31.0); Mean Corpuscular Volume 92.8 fL (80.0-94.0); Platelet Count 147 10^3/uL (130-400); Red Blood Cell Count 3.19 10^6/uL (4.70-6.10); Red Cell Dist. Width 14.5 % (11.5-14.5); White Blood Cell Count 7.6 10^3/uL (4.8-10.8)
[2023-08-03 07:09] LABS: ALT (SGPT) 36 U/L (0-50); AST (SGOT) 31 U/L (17-59); Albumin 3.3 g/dl (3.5-5.0); Alkaline Phosphatase 55 U/L (38-126); Blood Urea Nitrogen 40 mg/dl (9-20); Carbon Dioxide 24 mmol/L (22-30); Chloride 109 mmol/L (98-107); Estimated Creatinine Clearance 34 ml/min; Glucose 125 mg/dl (70-99); Potassium 4.5 mmol/L (3.5-5.1); Sodium 138 mmol/L (135-145); Total Bilirubin 1.2 mg/dl (0.2-1.3); Total Protein 5.8 g/dl (6.3-8.2); eGFR 37.35
--- NOTE | 2023-08-03 07:44 | W.PN.NEURO.1 ---
Today's Communication / Plan
-
Due to the patient's recent seizure and now suggestion of left hemispheric stroke, consider CT with contrast as the patient is not a candidate for MRI of the brain due to his pacemaker
continue ASA 81mg daily, Plavix added as well, and both should be continued for total of 21 days, then clopidogrel alone
Neuro Assessment/Plan
Assessment
Neuro Imaging:
CTA head/neck:
No evidence of acute intracranial abnormality. No evidence for hemodynamically significant stenosis involving the common carotid arteries, carotid bulbs, or proximal internal carotid arteries bilaterally.
Impression:
LORETO ZAPATA is a 82 year old M who has presented to the hospital with isolated R hand weakness that began yesterday around noon.
Differentials for the patient's presentation include:
1. stroke (most likely), or alternative intracranial abnormality
2. mononeuropathy
3. cervical radiculopathy
Plan
Recommendations:
Due to the patient's recent seizure and now suggestion of left hemispheric stroke, consider CT with contrast as the patient is not a candidate for MRI of the brain due to his pacemaker
BP goal is normotension.
continue ASA 81mg daily, Plavix added as well, and both should be continued for total of 21 days, then clopidogrel alone
Goal is normoglycemia.
continue atorvastatin 80 mg by mouth daily at bedtime and Zetia; on both at home. LDL at goal at 42.
PT/OT/ST evaluations
continue Keppra; request records from [facility]
Will follow as outpatient.
Subjective/Objective
Subjective Data
Date of Service: August 03, 2023
Minimal improvement in right hand weakness.
Objective Data
Vital Signs
Temp Pulse Resp BP Pulse Ox
36.4 C 74 18 124/61 99
08/03/23 07:36 08/03/23 07:36 08/03/23 07:36 08/03/23 07:36 08/03/23 07:36
Lab Results
08/03/23 06:17
08/03/23 06:17
PT 12.7 Sec (11.4-14.6) 08/01/23 20:27
INR 0.97 08/01/23 20:27
APTT 30.3 Sec (23.4-35.0) 08/01/23 20:27
Sodium 138 mmol/L (135-145) 08/03/23 06:17
Potassium 4.5 mmol/L (3.5-5.1) 08/03/23 06:17
BUN 40 mg/dl (9-20) H 08/03/23 06:17
Glucose 125 mg/dl (70-99) H 08/03/23 06:17
Calcium 9.0 mg/dl (8.4-10.2) 08/03/23 06:17
LDL Cholesterol, Calc 42 mg/dl 08/02/23 07:03
Patient Allergies
No Known Allergies Allergy (Verified 04/19/22 14:05)
Review of Systems
-
History Source: Patient and Family
All other systems: Reviewed and negative
EENT: Negative Decreased Vision
Neuro: Negative Dizzy or Headache
Physical Exam
-
General: No Apparent Distress and Appears Stated Age
Eyes: Round OU, Brady Conjunctivae and No Ptosis
HEENT: Anicteric and Moist Mucous Membranes
Neck: Full Range of Motion
Respiratory: No Dyspnea
Cardiac: No JVD
GI: Non-distended
Skin: Unremarkable
Extremities: No Clubbing, No Cyanosis and No Edema
Psych: Intact Judgement/Insight
Extended Neurological Exam
Mood & Affect: Mood Unremarkable and Affect Unremarkable
Attention Span & Concentration: Awake, Alert, Interactive and Mild Difficulty with 2 Step Request
Memory: Unremarkable
Tremor: Hand Tremor Absent and Head Tremor Absent
Speech: Quality Unremarkable and Quantity Unremarkable
Cranial Nerve II: Left Eye: Pupillary Size Unremarkable and Visual Ware Grossly Intact
Cranial Nerve II: Right Eye: Pupillary Size Unremarkable and Visual Ware Grossly Intact
Cranial Nerves III, IV, : Extraocular Movement: Grossly Intact
Cranial Nerve V: Facial Sensation: Unable to Assess
Cranial Nerve VII: Facial Symmetry: Normal Facial Symmetry
Cranial Nerve VIII: Hearing: Unremarkable Hearing to Normal Conversational Volume
Muscle Strength, Overall: Full in Upper Extremities (Except for right hand distal weakness, 4 out of 5)
Muscle Bulk & Tone: Bulk Unremarkable and Tone Unremarkable
Pronator Drift: No Drift in Upper Extremities
Touch Sensation: Unremarkable
Coordination: [id number] Testing Unremarkable
Data Reviewed
-
CT-A: Report Reviewed
CT Head: Report Reviewed
Labs: Report Reviewed
Lipid Profile: Report Reviewed
Reviewed with: Physician, Nurse Practioner, Patient and Family
Old Records: Summarized
Past History
Past History
ED Past Medical History: CAD, Cancer (prostate), CVA, GERD, HTN, Seizures and Other (Heart block); Negative Renal failure
ED Past Surgical History: Cardiac (Pacemaker, CABG x 2017)
Social History
Tobacco: Non-smoker
Alcohol: None
Drug: None
Personal:
Living: with family
Employment: Retired
Family History
Family History: Other (reviewed and noncontributory)
Medications
-
Medications:
Generic Name Dose Route Start Last Admin
Trade Name Freq PRN Reason Stop Dose Admin
Acetaminophen 650 mg 08/02/23 01:28
Acetaminophen 650 Mg Rectal Suppository RECTAL 08/30/23 01:27
Q4HPRN PRN
[place], mild pain, or temp >100.4F
Acetaminophen 650 mg 08/02/23 01:28
Acetaminophen 325 Mg Tablet PO 08/30/23 01:27
Q4HPRN PRN
[place], mild pain, or temp >100.4F
Amlodipine Besylate 10 mg 08/02/23 08:00 08/02/23 08:22
Amlodipine 10 Mg Tablet PO 08/30/23 07:59 10 mg
DAILY AMANDA Administration
Ascorbic Acid 500 mg 08/02/23 08:00 08/02/23 08:22
Ascorbic Acid 500 Mg Tablet PO 08/30/23 07:59 500 mg
DAILY AMANDA Administration
Aspirin 81 mg 08/02/23 08:00 08/02/23 08:22
Aspirin 81 Mg (Enteric Coated) Tablet PO 08/30/23 07:59 81 mg
DAILY AMANDA Administration
Atorvastatin Calcium 80 mg 08/02/23 18:00 08/02/23 17:00
Atorvastatin (Lipitor) 80 Mg Tablet PO 08/30/23 17:59 80 mg
QPM AMANDA Administration
Calcium Carbonate 500 mg 08/02/23 08:00 08/02/23 20:22
Calcium Carbonate 500 Mg Tablet PO 08/30/23 07:59 500 mg
BID AMANDA Administration
Carvedilol 25 mg 08/02/23 08:00 08/02/23 20:22
Carvedilol 25 Mg Tablet PO 08/30/23 07:59 25 mg
BID AMANDA Administration
Clopidogrel Bisulfate 75 mg 08/02/23 08:00 08/02/23 08:22
Clopidogrel 75 Mg Tablet PO 08/30/23 07:59 75 mg
DAILY AMANDA Administration
Ezetimibe 10 mg 08/02/23 08:00 08/02/23 08:22
Ezetimibe (Zetia) 10 Mg Tablet PO 08/30/23 07:59 10 mg
DAILY AMANDA Administration
Ferrous Sulfate 325 mg 08/02/23 08:00 08/02/23 08:22
Ferrous Sulfate 325 Mg Tablet PO 08/30/23 07:59 325 mg
DAILY AMANDA Administration
Levetiracetam 500 mg 08/02/23 09:00 08/02/23 21:21
Levetiracetam 500 Mg Regular Release Tablet PO 08/30/23 08:59 500 mg
Q12H AMANDA Administration
Non-Formulary Medication 2 grams 08/02/23 08:00
Icosapent Ethyl [Vascepa] PO 08/30/23 07:59
BID AMANDA
Non-Formulary Medication 120 mg 08/02/23 08:00
Relugolix [Orgovyx] PO 08/30/23 07:59
DAILY AMANDA
Pantoprazole Sodium 40 mg 08/02/23 08:00 08/02/23 20:22
Pantoprazole 40 Mg Delayed Release Tablet PO 08/30/23 07:59 40 mg
BID AMANDA Administration
Sodium Chloride 0 flush 08/02/23 02:00
Sodium Chloride 0.9% (Flush) Syringe IV 08/30/23 01:59
PER PROTOCOL AMANDA
--- NOTE | 2023-08-03 08:34 | W.PN.HOSP.TC ---
Today's Communication/Plan
-
[facility] placement pending
Appreciate neurology and physiatry recommendations
Contiue DAPT
Assessment / Plan
Assessment / Plan
Physical Exam
General: Not in acute distress
HEENT: Normocephalic
Respiratory: Clear to Auscultation Bilaterally
Cardiac: S1/S2. RRR.
GI: Soft, Non Tender, Non Distended, Normal Bowel Sounds
Musculoskeletal: No Cyanosis, No Edema.
Skin: Warm and Dry
Neuro: Awake, alert, oriented. Cranial Nerves 2 through 12 grossly intact. RT hand sales assistant displays weakness and right wrist flexion/extension weak.
Psych, calm, pleasant, no agitation.
Assessment/Plan
#Right hand weakness concern for CVA/TIA vs. Compression Neuropathy
[id number]
#History of strokes�was revealed on CT head imaging at [facility]
-Plavix 75 mg given in ER ,continue 75 mg daily: 21 days of DAPT followed by Clopidogrel alone, as per Dr. Jean-Claude Winters Text message today
-Continue aspirin 81 mg daily, atorvastatin 80 mg every afternoon, Vascepa 2 g twice daily, Zetia 10 mg daily
- LDL 42
HgbA1c is pending
- PT/OT/Case mgmt
-Appreciate neurology input
-Patient cannot have an MRI as his pacemaker is NOT MRI conditional
-Neurology will order repeat CT scan today -- no acute stroke seen
#History recent New onset seizures in ambulance on way to hospital
-Was treated at [facility] but per had normal EEG
-Continue Keppra 500 mg every 12 hours
-Follow-up Keppra level
# Current Prostate cancer - New dx at [facility]
Pet scan nml per
had tattoo hawkins made on Thursday 4 days ago for upcoming radiation
-Due to start radiation next week in [place] radiation [facility]c at [place]
-Hold Relugolix 120 mg daily due to small risk of stroke -- patient's Iva mentioned (on August 03, 2023) that she will check with patient's oncologist about holding vs. resuming Relugolix
#HTN�benign
-Continue carvedilol 25 mg twice daily, amlodipine 10 mg daily
#HLD
LDL 42
-Continue Vascepa 2 g p.o. twice daily, Zetia 10 mg daily, atorvastatin 80 mg every afternoon
#CKD 3B
-Creat 1.6 is at baseline. Today is 1.5
-follows with [facility] in [place]
#GERD
-Continue Protonix 40 mg twice daily
#CAD/[place]/CABG x 5 vessel 2018
No chest pain
-Continue aspirin 81 mg daily, Lipitor, beta-claudia
#Permanent pacemaker/Hx heart block
3rd Pacemaker NOT MRI compatible per Pt and
#Normocytic anemia
Known GI bleeding, suspect chronic blood loss anemia.
Hgb 10.5, MCV 90.1(was prior 12.9 in April 2022)
dvt proph
scd's
Code Status: Full code
Diet: Regular Diet (as per patient and his 's request)
Anticipated Discharge: 24 - 48 hours
Subjective/Interval History
-
Date of Service: August 03, 2023
Patient was seen and examined. He reported no new symptoms or complaints, still with right hand weakness.
Objective Data
-
Labs:
Laboratory Results
08/03/23
06:17
WBC 7.6
Hgb 10.0 L
Hct 29.6 L
Plt Count 147
Sodium 138
Potassium 4.5
Chloride 109 H
Carbon Dioxide 24
BUN 40 H
Creatinine 1.8 H
Glucose 125 H
Calcium 9.0
Total Bilirubin 1.2
AST 31
ALT 36
Alkaline Phosphatase 55
Vital Signs:
Vital Signs
Temp Pulse Resp BP Pulse Ox
97.5 F 74 18 124/61 99
08/03/23 07:36 08/03/23 07:36 08/03/23 07:36 08/03/23 07:36 08/03/23 07:36
I&O
08/02/23 08/03/23 08/04/23
06:59 06:59 06:59
Intake Total 30 / 30 1140 / 1140
Output Total 650 / 650 800 / 800
Balance -620 / -620 340 / 340
[2023-08-03] MEDS: KEPPRA 500 MG PO ×2 (10:01→21:03)
[2023-08-03] MEDS: ASPIR LOW (ENTERIC COATED) 81 MG PO (10:01)
[2023-08-03] MEDS: OSCAL CAL 500 500 MG PO ×2 (10:01→21:01)
[2023-08-03] MEDS: PROTONIX 40 MG PO ×2 (10:01→21:01)
[2023-08-03] MEDS: NORVASC 10 MG PO (10:01)
[2023-08-03] MEDS: FEOSOL 325 MG PO (10:02)
[2023-08-03] MEDS: PLAVIX 75 MG PO (10:02)
[2023-08-03] MEDS: VITAMIN C 500 MG PO (10:02)
[2023-08-03] MEDS: COREG 25 MG PO ×2 (10:02→21:03)
[2023-08-03] MEDS: ZETIA 10 MG PO (10:38)
--- NOTE | 2023-08-03 13:07 | PTOTSP ---
SPEECH THERAPY SPEECH/LANGUAGE/COGNITIVE COMMUNICATION AND SWALLOW EVALUATION:
Patient exhibits grossly functional oropharyngeal swallow at this time. Patient remains at risk for dysphagia/aspiration given suspected acute CVA and prior CVAs. Recommend continue Regular texture diet, thin liquids. Meds whole with liquid as best
tolerated. Aspiration precautions including: Upright positioning; Small single sips/bites; Slow rate of intake; Assistance with set-up and supervision as needed; Remain upright 30 minutes after eating/drinking. Speech therapy to follow, assess diet
tolerance and modify as appropriate, and provide education regarding aspiration risks/precautions.
Patient exhibits mild-moderate expressive/receptive language and moderate cognitive-communication impairments characterized by: Word finding difficulties/anomia, Reduced STM, Reduced higher level executive functioning skills, Reduced orientation,
Reduced ability to follow complex directions and answer complex y/n questions, delayed processing speed, reduced attention to structured tasks and conversation, and impaired judgement/safety awareness. Patient would benefit from intensive speech
therapy services at the acute care level and continued at the subacute level (such as inpatient rehab) to facilitate expressive/receptive language and cognitive communication abilities.
RECOMMEND:
1) Regular texture diet, thin liquids
2) Meds whole with liquid as best tolerated
3) Aspiration precautions including: Upright positioning; Small single sips/bites; Slow rate of intake; Assistance with set-up and supervision as needed; Remain upright 30 minutes after eating/drinking
4) Speech therapy to follow for swallow and expressive/receptive language and cognitive communication therapy
--- NOTE | 2023-08-03 14:00 | CM ---
Addendum entered by DAVE Marte 08/03/23 16:09:
Received return call from Yessenia in admissions at [facility] who confirmed acceptance for patient upon medical clearance.
Original Note:
Reviewed chart, met with PT who stated that patient would be a good candidate for acute. Placed a call to Yessenia in admissions at [facility], referral was made over the weekend. She stated that she would look at patient and return call to .
Plan: Case management will continue to follow and assist with discharge planning. Awaiting determination from [facility] regarding acceptance.
[2023-08-03 14:32] LABS: Keppra (Levetiracetam) 25 ug/mL (10-40)
--- NOTE | 2023-08-03 16:34 | CON.MD ---
Documented by User: Radha Pineda PA-C 08/04/23 08:22
Consultation - Medical
-
Referring Provider: Mihai Spain
Chief Complaint: Right Hand Weakness
History of Present Illness: This is a 82-year-old male with PMH of (old strokes seen on head CT at [place], new onset seizure diagnosed at [facility] 2 weeks ago now on Keppra, ASCVD, hypertension, CKD, prostate cancer ) admitted after abrupt onset
of right hand weakness and hand ataxia 0n 08/01/2023. He was using a computer and he had difficulty moving his mouse. No weakness in the rest of the right arm or right leg. No associated confusion or seizure-like activity. Has been compliant with
Keppra. He was out of the window for TNK upon arrival to the ED. Per neurology Due to patient's recent seizure and now suggestion of left hemispheric stroke, consider CT with contrast as he is not a candidate for MRI of the brain due to his
pacemaker. CT scan of Brain - No acute intracranial abnormality identified. Right frontal, right cerebellar, left occipital chronic infarcts as seen prior. Patient had completed at home PT/OT post discharge from [facility] and per family was doing
very well and was back to cooking.
CTA Head/Neck: No evidence of acute intracranial abnormality. If there remains high clinical concern for acute infarction and further imaging evaluation is desired, consideration for MRI, if there are no contraindications.
No evidence for hemodynamically significant stenosis involving the common carotid arteries, carotid bulbs, or proximal internal carotid arteries bilaterally.
No evidence for large vessel occlusion of the intracranial circulation.
No significant narrowing of the vertebral or basilar arteries. No significant narrowing of the posterior cerebral arteries.
Past Medical History: h/o CVA, ASCVD, hypertension, CKD , seizure like activity, Prostate cancer, CAD
Procedure History: Cardiac bypass x 5 in 2018 at [place], Mitral Valve replacement, Tonsillectomy, Cholecystectomy, [place] teeth extraction
Family History: Dad with pancreatic cancer, Mom with Alzheimer,
Social History:
Functional Level Premorbidly: Independent with all activities prior to recent seizure diagnosis. Had PT/OT at home and has been independent.
Functional Level Currently: Ambulates 25 feet x 2, 30 feet x 2 without device, hand held, min assist, bed mobility-min assist, transfer-min assist, toileting- Mod assist, eating-min assist,
Tobacco: Denies
Alcohol: Denies
Drug use: Denies
Lives with: spouse
24-hour assistance available: and nearby daughter can assist.
Number of floors: 2
# steps to enter:
# steps to second floor: does not use 2nd floor, Stay only on 1st floor
Potential First floor set up yes:
Driving: yes
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
�
Allergies:
Allergy/AdvReac Type Severity Reaction Status Date / Time
No Known Allergies Allergy Verified 04/19/22 14:05
Review of Systems:
Constitutional: (x) Normal _
Eye: (x) Normal _
Ear/Nose/Throat: (x) Normal _
Respiratory: (x) Normal _
Cardiovascular: (x) cad
Gastrointestinal: (x) Normal _
Genitourinary: (x) Normal _
Musculoskeletal: (x) right hand weakness
Integumentary: (x) Normal _
Neurologic: (x) cvas, righthand weakness, seizure
Psychiatric: (x) Normal _
Endocrine: (x) Normal _
Hematologic/Lymphatic: (x) Normal _
Allergic/Immunologic: (x) Normal _
Medications:
Active Current Visit Medication List
Category Date Time Status
Acetaminophen [Tylenol/Feverall] Med 08/02/23 01:28 Active
650 mg RECTAL Q4HPRN PRN
Acetaminophen [Tylenol] Med 08/02/23 01:28 Active
650 mg PO Q4HPRN PRN
Amlodipine [Norvasc] Med 08/02/23 08:00 Active
10 mg PO DAILY
Ascorbic Acid [Vitamin C] Med 08/02/23 08:00 Active
500 mg PO DAILY
Aspirin Low Dose EC [Aspir Low (Enteric Coated)] Med 08/02/23 08:00 Active
81 mg PO DAILY
Atorvastatin [Lipitor] Med 08/02/23 18:00 Active
80 mg PO QPM
Calcium Carbonate [Oscal Cong 500] Med 08/02/23 08:00 Active
500 mg PO BID
Carvedilol [Coreg] Med 08/02/23 08:00 Active
25 mg PO BID
Clopidogrel Bisulfate [Plavix] Med 08/02/23 08:00 Active
75 mg PO DAILY
Ezetimibe [Zetia] Med 08/02/23 08:00 Active
10 mg PO DAILY
Ferrous Sulfate [Feosol] Med 08/02/23 08:00 Active
325 mg PO DAILY
Flush (0.9% Sodium Chloride) [Flush (Nss)] Med 08/02/23 02:00 Active
See Dose Instructions IV PER PROTOCOL
Levetiracetam [Keppra] Med 08/02/23 09:00 Active
500 mg PO Q12H
Pantoprazole [Protonix] Med 08/02/23 08:00 Active
40 mg PO BID
icosapent ethyl [Vascepa] Med 08/03/23 17:00 Active
See Dose Instructions PO BID@0800,1700
relugolix [Orgovyx] Med 08/03/23 16:00 Active
See Dose Instructions PO DAILY@1400
Vitals:
Temp Pulse Resp BP Pulse Ox
97.8 F 73 16 157/58 100
08/03/23 15:32 08/03/23 15:32 08/03/23 15:32 08/03/23 15:32 08/03/23 15:32
Height 5 ft 11 in
Actual Weight 80.824 kg
Body Mass Index (BMI) 24.9
Physical Exam:
General Appearance/Observation: Well-developed, well-nourished individual in no apparent distress.
Pain/Comfort Assessment: Denies
Mood/Affect: Appropriate
Integumentary/Operative Site:
�� Pressure Ulcer Evaluation: absent over heels.
��
�� Other Type of Wound: absent
��
Eyes: Conjunctiva/Lids: normal ��� Pupils: pupils equal round and reactive to light and Accommodation
Ears/Nose/Throat: oral mucosa moist,� throat clear.������������ Lips/Teeth/Gums: normal
Neck: No muscle spasm or tenderness
Cardiovascular: Heart: regular, no murmur
Pulses: dorsalis pedis 2+ bilaterally
Respiratory: Respiratory Effort/Chest Expansion: normal ������� Auscultation: Clear to auscultation bilaterally
Gastrointestinal: abdomen not tender, no distension, girth, normal abdominal bowel sounds
Genitourinary: No Wu
Extremities: Edema: trace swelling in feet Cyanosis: None Trophic changes: None
Neurology Exam:
Orientation: Alert, Oriented to self, month, looked on whiteboard for date, could not identify the hospital
Memory: some impairment for immediate medical concerns
Higher cortical function
Repetition: impaired
Comprehension: impaired, slow to process, needs repeating
Two step command: impaired, slow to process, affected by receptive aphasia
Naming: named 2 out of 3 items. Name the clock but was not able to tell the correct time
Cranial Nerves:
�� CNII: Pupillary light reflex: Intact��� Visual Field: Intact
�� CN III, IV, : Extraocular muscles: grossly Intact - patient not following command, says the direction that the finger was moving and not actually doing it until cued
�� CN V: Facial Sensation at Forehead: Intact, Maxilla: Intact, Mandible: Intact
�� CN VII: Facial movement: Symmetric
�� CN VIII: Hearing: Normal
�� CN IX/X: Speech & swallow: Normal, little hoarse Position of Uvula: Midline
�� CN XI: Shoulder shrug: Symmetric
�� CN XII: Tongue protrusion: slightly deviated to right
Sensory:
�� Light touch: Intact in bilateral upper and lower extremities
��
Reflexes:
�� Biceps: 2+ bilaterally
�� Brachioradialis: 2+ bilaterally
�� Triceps: 2+ bilaterally
�� Patellar: 2+ bilaterally
�� Achilles: 2+ bilaterally
�� Babinski: left non responsive,Down going right
�� Clonus: ? left clonus, increased spasticity or cannot relax foot
�� Keerthi: Negative bilaterally
Cerebellar: Dysmetria/Ataxia: impairment on the right side with nose to finger coordination
Musculoskeletal:
Motor: (Manual muscle scale 0-5)
Muscle SA EF WE EE FF FA HF KE DF EHL PF
Right� 5 4 2 4 2 2 5 5 5 5 5
Left 5 5 5 5 3 3 5 5 5 5 5
handgrip-3- on the right
Tone: Normal in all extremities
Range of Motion: Passively within normal limits in all extremities
Lab Results
Labs
WBC 7.6 10^3/uL (4.8-10.8) 08/03/23 06:17
RBC 3.19 10^6/uL (4.70-6.10) L 08/03/23 06:17
Hgb 10.0 g/dL (13.0-18.0) L 08/03/23 06:17
Hct 29.6 % (39.0-52.0) L 08/03/23 06:17
MCV 92.8 fL (80.0-94.0) 08/03/23 06:17
MCH 31.3 pg (27.0-31.0) H 08/03/23 06:17
MCHC 33.8 g/dL (33.0-37.0) 08/03/23 06:17
RDW 14.5 % (11.5-14.5) 08/03/23 06:17
Plt Count 147 10^3/uL (130-400) 08/03/23 06:17
MPV 11.0 fL (7.4-10.4) H 08/03/23 06:17
Abs Immat Gran (auto) 0.0 10^3/uL (0-0.05) 08/02/23 07:03
Absolute Neuts (auto) 6.2 10^3/uL (1.4-6.5) 08/02/23 07:03
Absolute Lymphs (auto) 1.0 10^3/uL (1.2-3.4) L 08/02/23 07:03
Absolute Monos (auto) 0.6 10^3/uL (0.1-0.6) 08/02/23 07:03
Absolute Eos (auto) 0.3 10^3/uL (0-0.7) 08/02/23 07:03
Absolute Basos (auto) 0.0 10^3/uL (0-0.2) 08/02/23 07:03
Immature Gran % 0.5 % (0-0.5) 08/02/23 07:03
Neutrophils % 76.3 % (42.2-75.2) H 08/02/23 07:03
Lymphocytes % 12.3 % (20.5-51.1) L 08/02/23 07:03
Monocytes % 7.4 % (1.7-9.3) 08/02/23 07:03
Eosinophils % 3.1 % (0-6) 08/02/23 07:03
Basophils % 0.4 % (0-2) 08/02/23 07:03
Nucleated RBC % 0 % (-) 08/02/23 07:03
PT 12.7 Sec (11.4-14.6) 08/01/23 20:27
INR 0.97 08/01/23 20:27
APTT 30.3 Sec (23.4-35.0) 08/01/23 20:27
Plt Function - Aspirin 535 ARU 08/02/23 08:09
Sodium 138 mmol/L (135-145) 08/03/23 06:17
Potassium 4.5 mmol/L (3.5-5.1) 08/03/23 06:17
Chloride 109 mmol/L (98-107) H 08/03/23 06:17
Carbon Dioxide 24 mmol/L (22-30) 08/03/23 06:17
BUN 40 mg/dl (9-20) H 08/03/23 06:17
Creatinine 1.8 mg/dL (0.7-1.3) H 08/03/23 06:17
Estimated Creat Clear 34 ml/min 08/03/23 06:17
eGFR 37.35 08/03/23 06:17
Glucose 125 mg/dl (70-99) H 08/03/23 06:17
Hemoglobin A1c 6.0 % (4.0-5.6) H 08/02/23 07:03
Calcium 9.0 mg/dl (8.4-10.2) 08/03/23 06:17
Iron 69 ug/dl (49-181) 08/02/23 07:03
TIBC 296 ug/dl (261-462) 08/02/23 07:03
% Saturation 23 % (20-50) 08/02/23 07:03
Total Bilirubin 1.2 mg/dl (0.2-1.3) 08/03/23 06:17
AST 31 U/L (17-59) 08/03/23 06:17
ALT 36 U/L (0-50) 08/03/23 06:17
Alkaline Phosphatase 55 U/L (38-126) 08/03/23 06:17
Troponin I 0.019 ng/ml 08/01/23 20:27
Total Protein 5.8 g/dl (6.3-8.2) L 08/03/23 06:17
Albumin 3.3 g/dl (3.5-5.0) L 08/03/23 06:17
Triglycerides 74 mg/dl (10-149) 08/02/23 07:03
Total Cholesterol 126 mg/dl (50-199) 08/02/23 07:03
LDL Cholesterol, Calc 42 mg/dl 08/02/23 07:03
VLDL Cholesterol, Calc 14 mg/dl (0-30) 08/02/23 07:03
HDL Cholesterol 70 mg/dl 08/02/23 07:03
Levetiracetam 25 ug/mL (10-40) 08/01/23 20:27
POC Glucose 180 mg/dl (70-99) H 08/01/23 20:07
�
Diagnostic Results: as per HPI
Assessment
This is a 82-year-old male with PMH of (old strokes seen on head CT at [place], new onset seizure diagnosed at [facility] 2 weeks ago now on Keppra, ASCVD, hypertension, CKD, prostate cancer ) admitted after abrupt onset of right hand weakness and
hand ataxia 0n 08/01/2023. He was out of the window for TNK upon arrival to the ED. CT scan of Brain - No acute intracranial abnormality identified. Right frontal, right cerebellar, left occipital chronic infarcts as seen prior. Patient had
completed at home PT/OT post discharge from [facility] and per family was doing very well and was back to cooking.
Plan
PT/OT to increase independence with ADLs, improve balance, coordination, endurance, strength, mobility, community reintegration, decreased burden of care on others and family education.
CVA: old CVAs from CT scan noted. Per neurology- to be on (aspirin 81mg + Plavix x 21 days) then on lifelong Plavix, statin, and blood pressure control (SBP less than 180 and diastolic less than 100 to participate with therapy for ischemic stroke).
Continue to monitor neurologic status.
right dominant hemiparesis: High risk for falls and sliding out of chair/bed. Safety reinforced.
- Avoid using affected arm to help lift or pull patient as this will cause trauma to the shoulder.
Dysarthria: speech evaluation
Aphasia: speech evaluation
Seizures: Diagnosed at [facility] on 07/17/23 with seizure like activities. Was started on Keppra. Monitor seizures, seizure precautions
HTN: Carvedilol, Amlodipine 10mg. continue medications, monitor closely
CKD: Vascepa 2 gram bid. bun 40, creatinine 1.8
HLD: Atorvastatin 80mg , Zetia 10mg
Coronary artery disease : s/p cabg. Aspirin, atorvastatin, carvedilol, Plavix, Amlodipine
Anemia: Cont ferrous sulfate. Likely multifactorial.� Continue to monitor.
Psych: Psychology consult.� Monitor mood, adjust medications as needed.
Skin: monitor for pressure sores/rashes/lesions.
Pain: acetaminophen as needed.
Bowel: Colace and Senna, PRN bisacodyl.
Prostate Cancer: cont Orgovyx
Bladder: Time void, PVRs, PRN straight cath.
GI Prophylaxis/GERD: Pantoprazole 40mg bid
DVT Prophylaxis: Mechanical and could add heparin SC or lovenox
Pulmonary: Incentive spirometry
Safety: Continue to reinforce assistance with all transfers.
Code Status:� Full code
Dispo (date/plan/equipment needs): Home with family care.� Social history reviewed.
Functional and Medical Goals: Modified Independent with ADL�s, ambulation, transfers
SUMMARY
Discharge Destination: Acute inpatient Rehabilitation
Summary of recommendations: Patient would benefit from acute inpatient rehabilitation for PT/OT to increase independence with ADLs, improve balance, coordination, endurance, strength, mobility, community reintegration, decreased burden of care on
others and family education.
CVA: with right hand weakness, ataxia and ambulatory dysfunction. Old CVAs from CT scan noted. Per neurology- to be on (aspirin 81mg + Plavix x 21 days) then on lifelong Plavix, statin, and blood pressure control (SBP less than 180 and diastolic
less than 100 to participate with therapy for ischemic stroke). Continue to monitor neurologic status.
right dominant hemiparesis: High risk for falls and sliding out of chair/bed. Safety reinforced.
- Avoid using affected arm to help lift or pull patient as this will cause trauma to the shoulder.
Dysarthria: speech evaluation
Aphasia: receptive and some expressive. speech evaluation
HTN: Carvedilol, Amlodipine 10mg. continue medications, monitor closely. Must be stable on po medication prior to discharge transfer
CKD: Vascepa 2 gram bid. bun 40, creatinine 1.8
Pain: acetaminophen as needed.
Bowel: Colace and Senna, PRN bisacodyl.
Prostate Cancer: cont Orgovyx
Bladder: Time void, PVRs, PRN straight cath.
GI Prophylaxis/GERD: Pantoprazole 40mg bid
DVT Prophylaxis: Mechanical and could add heparin SC or lovenox
Pulmonary: Incentive spirometry
Safety: Continue to reinforce assistance with all transfers.
Thank you for allowing me to care for your patient. Please contact me with any questions or concerns.
This note was dictated using a voice recognition system. Please excuse any typographical errors from coding clerks supervisor. If you believe there are any discrepancies, please notify our office.

Documented by User: Bryn Alcantar MD 08/04/23 10:36
Consultation - Medical
-
Referring Provider: Mihai Spain
Chief Complaint: Right Hand Weakness
History of Present Illness: This is a 82-year-old male with PMH of (old strokes seen on head CT at [place], new onset seizure diagnosed at [place] 2 weeks ago now on Keppra, ASCVD, hypertension, CKD, prostate cancer ) admitted after abrupt onset
of right hand weakness and hand ataxia 0n 08/01/2023. He was using a computer and he had difficulty moving his mouse. No weakness in the rest of the right arm or right leg. No associated confusion or seizure-like activity. Has been compliant with
Keppra. He was out of the window for TNK upon arrival to the ED. Per neurology Due to patient's recent seizure and now suggestion of left hemispheric stroke, consider CT with contrast as he is not a candidate for MRI of the brain due to his
pacemaker. CT scan of Brain - No acute intracranial abnormality identified. Right frontal, right cerebellar, left occipital chronic infarcts as seen prior. Patient had completed at home PT/OT post discharge from [place] and per family was doing
very well and was back to cooking.
CTA Head/Neck: No evidence of acute intracranial abnormality. If there remains high clinical concern for acute infarction and further imaging evaluation is desired, consideration for MRI, if there are no contraindications.
No evidence for hemodynamically significant stenosis involving the common carotid arteries, carotid bulbs, or proximal internal carotid arteries bilaterally.
No evidence for large vessel occlusion of the intracranial circulation.
No significant narrowing of the vertebral or basilar arteries. No significant narrowing of the posterior cerebral arteries.
Past Medical History: h/o CVA, ASCVD, hypertension, CKD , seizure like activity, Prostate cancer, CAD
Procedure History: Cardiac bypass x 5 in 2018 at [place], Mitral Valve replacement, Tonsillectomy, Cholecystectomy, [place] teeth extraction
Family History: Dad with pancreatic cancer, Mom with Alzheimer,
Social History:
Functional Level Premorbidly: Independent with all activities prior to recent seizure diagnosis. Had PT/OT at home and has been independent.
Functional Level Currently: Ambulates 25 feet x 2, 30 feet x 2 without device, hand held, min assist, bed mobility-min assist, transfer-min assist, toileting- Mod assist, eating-min assist,
Tobacco: Denies
Alcohol: Denies
Drug use: Denies
Lives with: spouse
24-hour assistance available: and nearby daughter can assist.
Number of floors: 2
# steps to enter: 2
# steps to second floor: does not use 2nd floor, Stay only on 1st floor
Potential First floor set up: yes
Driving: yes
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
Allergies:
Allergy/AdvReac Type Severity Reaction Status Date / Time
No Known Allergies Allergy Verified 04/19/22 14:05
Review of Systems:
Constitutional: (x) Normal _
Eye: (x) Normal _
Ear/Nose/Throat: (x) Normal _
Respiratory: (x) Normal _
Cardiovascular: (x) cad
Gastrointestinal: (x) Normal _
Genitourinary: (x) Normal _
Musculoskeletal: (x) right hand weakness
Integumentary: (x) Normal _
Neurologic: (x) cvas, right hand weakness, seizure
Psychiatric: (x) Normal _
Endocrine: (x) Normal _
Hematologic/Lymphatic: (x) Normal _
Allergic/Immunologic: (x) Normal _
Medications:
Active Current Visit Medication List
Category Date Time Status
Acetaminophen [Tylenol/Feverall] Med 08/02/23 01:28 Active
650 mg RECTAL Q4HPRN PRN
Acetaminophen [Tylenol] Med 08/02/23 01:28 Active
650 mg PO Q4HPRN PRN
Amlodipine [Norvasc] Med 08/02/23 08:00 Active
10 mg PO DAILY
Ascorbic Acid [Vitamin C] Med 08/02/23 08:00 Active
500 mg PO DAILY
Aspirin Low Dose EC [Aspir Low (Enteric Coated)] Med 08/02/23 08:00 Active
81 mg PO DAILY
Atorvastatin [Lipitor] Med 08/02/23 18:00 Active
80 mg PO QPM
Calcium Carbonate [Oscal Cong 500] Med 08/02/23 08:00 Active
500 mg PO BID
Carvedilol [Coreg] Med 08/02/23 08:00 Active
25 mg PO BID
Clopidogrel Bisulfate [Plavix] Med 08/02/23 08:00 Active
75 mg PO DAILY
Ezetimibe [Zetia] Med 08/02/23 08:00 Active
10 mg PO DAILY
Ferrous Sulfate [Feosol] Med 08/02/23 08:00 Active
325 mg PO DAILY
Flush (0.9% Sodium Chloride) [Flush (Nss)] Med 08/02/23 02:00 Active
See Dose Instructions IV PER PROTOCOL
Levetiracetam [Keppra] Med 08/02/23 09:00 Active
500 mg PO Q12H
Pantoprazole [Protonix] Med 08/02/23 08:00 Active
40 mg PO BID
icosapent ethyl [Vascepa] Med 08/03/23 17:00 Active
See Dose Instructions PO BID@0800,1700
relugolix [Orgovyx] Med 08/03/23 16:00 Active
See Dose Instructions PO DAILY@1400
Vitals:
Temp Pulse Resp BP Pulse Ox
97.8 F 73 16 157/58 100
08/03/23 15:32 08/03/23 15:32 08/03/23 15:32 08/03/23 15:32 08/03/23 15:32
Height 5 ft 11 in
Actual Weight 80.824 kg
Body Mass Index (BMI) 24.9
Physical Exam:
General Appearance/Observation: Well-developed, well-nourished male in no apparent distress.
Pain/Comfort Assessment: Denies
Mood/Affect: Appropriate
Integumentary/Operative Site:
�� Pressure Ulcer Evaluation: absent over heels.
��
Eyes: Conjunctiva/Lids: normal ��� Pupils: pupils equal round and reactive to light and Accommodation
Ears/Nose/Throat: oral mucosa moist,� throat clear.������������ Lips/Teeth/Gums: normal
Neck: No muscle spasm or tenderness
Cardiovascular: Heart: regular, no murmur
Pulses: dorsalis pedis 2+ bilaterally
Respiratory: Respiratory Effort/Chest Expansion: normal ������� Auscultation: Clear to auscultation bilaterally
Gastrointestinal: abdomen not tender, no distension, normal abdominal bowel sounds
Genitourinary: No Wu
Extremities: Edema: trace swelling in feet Cyanosis: None Trophic changes: None
Neurology Exam:
Orientation: Alert, Oriented to self, month, looked on whiteboard for date, could not identify the hospital
Memory: some impairment for immediate medical concerns
Repetition: impaired
Comprehension: impaired, slow to process, needs repeating
Two step command: impaired, slow to process, affected by receptive aphasia
Naming: named 2 out of 3 items. Name the clock but was not able to tell the correct time
Cranial Nerves:
�� CNII: Pupillary light reflex: Intact��� Visual Field: Intact
�� CN III, IV, : Extraocular muscles: grossly Intact - patient not following command, says the direction that the finger was moving and not actually doing it until cued
�� CN V: Facial Sensation at Forehead: Intact, Maxilla: Intact, Mandible: Intact
�� CN VII: Facial movement: Symmetric
�� CN VIII: Hearing: Normal
�� CN IX/X: Speech & swallow: voice a little hoarse Position of Uvula: Midline
�� CN XI: Shoulder shrug: Symmetric
�� CN XII: Tongue protrusion: slightly deviated to right
Sensory:
�� Light touch: Intact in bilateral upper and lower extremities, no extinction to double simultaneous stimulation.
��
Reflexes:
�� Biceps: 2+ bilaterally
�� Brachioradialis: 2+ bilaterally
�� Triceps: 2+ bilaterally
�� Patellar: 2+ bilaterally
�� Achilles: 2+ bilaterally
�� Babinski: left non responsive,Down going right
�� Clonus: none bilaterally
�� Keerthi: Negative bilaterally
Cerebellar: Dysmetria/Ataxia: impairment on the right side with nose to finger coordination
Musculoskeletal: Motor: (Manual muscle scale 0-5)
Muscle SA EF WE EE FF FA HF KE DF EHL PF
Right� 4 4 2 4 3 2 4 4 4 4 5
Left 5 5 5 5 3 3 5 5 5 5 5
Tone: Normal in all extremities
Range of Motion: Passively within normal limits in all extremities
Lab Results
Labs
WBC 7.6 10^3/uL (4.8-10.8) 08/03/23 06:17
RBC 3.19 10^6/uL (4.70-6.10) L 08/03/23 06:17
Hgb 10.0 g/dL (13.0-18.0) L 08/03/23 06:17
Hct 29.6 % (39.0-52.0) L 08/03/23 06:17
MCV 92.8 fL (80.0-94.0) 08/03/23 06:17
MCH 31.3 pg (27.0-31.0) H 08/03/23 06:17
MCHC 33.8 g/dL (33.0-37.0) 08/03/23 06:17
RDW 14.5 % (11.5-14.5) 08/03/23 06:17
Plt Count 147 10^3/uL (130-400) 08/03/23 06:17
MPV 11.0 fL (7.4-10.4) H 08/03/23 06:17
Abs Immat Gran (auto) 0.0 10^3/uL (0-0.05) 08/02/23 07:03
Absolute Neuts (auto) 6.2 10^3/uL (1.4-6.5) 08/02/23 07:03
Absolute Lymphs (auto) 1.0 10^3/uL (1.2-3.4) L 08/02/23 07:03
Absolute Monos (auto) 0.6 10^3/uL (0.1-0.6) 08/02/23 07:03
Absolute Eos (auto) 0.3 10^3/uL (0-0.7) 08/02/23 07:03
Absolute Basos (auto) 0.0 10^3/uL (0-0.2) 08/02/23 07:03
Immature Gran % 0.5 % (0-0.5) 08/02/23 07:03
Neutrophils % 76.3 % (42.2-75.2) H 08/02/23 07:03
Lymphocytes % 12.3 % (20.5-51.1) L 08/02/23 07:03
Monocytes % 7.4 % (1.7-9.3) 08/02/23 07:03
Eosinophils % 3.1 % (0-6) 08/02/23 07:03
Basophils % 0.4 % (0-2) 08/02/23 07:03
Nucleated RBC % 0 % (-) 08/02/23 07:03
PT 12.7 Sec (11.4-14.6) 08/01/23 20:27
INR 0.97 08/01/23 20:27
APTT 30.3 Sec (23.4-35.0) 08/01/23 20:27
Plt Function - Aspirin 535 ARU 08/02/23 08:09
Sodium 138 mmol/L (135-145) 08/03/23 06:17
Potassium 4.5 mmol/L (3.5-5.1) 08/03/23 06:17
Chloride 109 mmol/L (98-107) H 08/03/23 06:17
Carbon Dioxide 24 mmol/L (22-30) 08/03/23 06:17
BUN 40 mg/dl (9-20) H 08/03/23 06:17
Creatinine 1.8 mg/dL (0.7-1.3) H 08/03/23 06:17
Estimated Creat Clear 34 ml/min 08/03/23 06:17
eGFR 37.35 08/03/23 06:17
Glucose 125 mg/dl (70-99) H 08/03/23 06:17
Hemoglobin A1c 6.0 % (4.0-5.6) H 08/02/23 07:03
Calcium 9.0 mg/dl (8.4-10.2) 08/03/23 06:17
Iron 69 ug/dl (49-181) 08/02/23 07:03
TIBC 296 ug/dl (261-462) 08/02/23 07:03
% Saturation 23 % (20-50) 08/02/23 07:03
Total Bilirubin 1.2 mg/dl (0.2-1.3) 08/03/23 06:17
AST 31 U/L (17-59) 08/03/23 06:17
ALT 36 U/L (0-50) 08/03/23 06:17
Alkaline Phosphatase 55 U/L (38-126) 08/03/23 06:17
Troponin I 0.019 ng/ml 08/01/23 20:27
Total Protein 5.8 g/dl (6.3-8.2) L 08/03/23 06:17
Albumin 3.3 g/dl (3.5-5.0) L 08/03/23 06:17
Triglycerides 74 mg/dl (10-149) 08/02/23 07:03
Total Cholesterol 126 mg/dl (50-199) 08/02/23 07:03
LDL Cholesterol, Calc 42 mg/dl 08/02/23 07:03
VLDL Cholesterol, Calc 14 mg/dl (0-30) 08/02/23 07:03
HDL Cholesterol 70 mg/dl 08/02/23 07:03
Levetiracetam 25 ug/mL (10-40) 08/01/23 20:27
POC Glucose 180 mg/dl (70-99) H 08/01/23 20:07
Diagnostic Results: as per HPI
Assessment
82-year-old right handed M [facility] (old strokes seen on head CT at [facility], new onset seizure diagnosed at [facility] 2 weeks ago now on Keppra, ASCVD, hypertension, CKD, prostate cancer ) admitted after abrupt onset of right hand weakness and hand
ataxia 0n 08/01/2023. He was out of the window for TNK upon arrival to the ED. CT scan of Brain - No acute intracranial abnormality identified. Right frontal, right cerebellar, left occipital chronic infarcts as seen prior. Patient had completed at
home PT/OT post discharge from [facility] and per family was doing very well and was back to cooking.
Plan
PT/OT to increase independence with ADLs, improve balance, coordination, endurance, strength, mobility, community reintegration, decreased burden of care on others and family education.
CVA: old CVAs from CT scan noted. Per neurology- to be on (aspirin 81mg + Plavix x 21 days) then on lifelong Plavix, statin, and blood pressure control (SBP less than 180 and diastolic less than 100 to participate with therapy for ischemic stroke).
Continue to monitor neurologic status.
Right dominant hemiparesis: High risk for falls and sliding out of chair/bed. Safety reinforced.
- Avoid using affected arm to help lift or pull patient as this will cause trauma to the shoulder.
Dysarthria: speech
Aphasia: speech
Seizures: Diagnosed at [facility] on 07/17/23 with seizure like activities and started on Keppra. Monitor seizures, seizure precautions
HTN: Carvedilol, Amlodipine 10mg. continue medications, monitor closely
CKD: Vascepa 2 gram bid. bun 40, creatinine 1.8
HLD: Atorvastatin 80mg , Zetia 10mg
Coronary artery disease: s/p cabg. Aspirin, atorvastatin, carvedilol, Plavix, Amlodipine
Anemia: Cont ferrous sulfate. Likely multifactorial.� Continue to monitor.
Psych: Psychology consult.� Monitor mood, adjust medications as needed.
Skin: monitor for pressure sores/rashes/lesions.
Pain: acetaminophen as needed.
Bowel: Colace and Senna, PRN bisacodyl.
Prostate Cancer: Orgovyx
Bladder: Time void, PVRs, PRN straight cath.
GI Prophylaxis/GERD: Pantoprazole 40mg bid
DVT Prophylaxis: Mechanical and suggest heparin SC or lovenox
Pulmonary: Incentive spirometry
Safety: Continue to reinforce assistance with all transfers.
Code Status: Full code
Dispo (date/plan/equipment needs): Home with family care.� Social history reviewed.
Functional and Medical Goals: Modified Independent with ADL�s, ambulation, transfers
Discharge Destination: Acute inpatient Rehabilitation
Attending Statement:
I saw and examined the patient today. Reviewed care plan with patient, therapy, nursing, and physician office manager executive assistant. I agree with the above subjective and physical exam, and plan as documented by JUAN JOSE Pineda with adjustments made as necessary.
A total of 60 minutes were spent with the patient preparing for the evaluation, obtaining history, performing examination and evaluation, counseling, data review, case management, care coordination, sales order clerk, and EMR documentation.
Summary of recommendations: Patient would benefit from acute inpatient rehabilitation for PT/OT to increase independence with ADLs, improve balance, coordination, endurance, strength, mobility, community reintegration, decreased burden of care on
others and family education.
CVA: with right hand weakness, ataxia and ambulatory dysfunction. Old CVAs from CT scan noted. Per neurology- to be on (aspirin 81mg + Plavix x 21 days) then on lifelong Plavix, statin, and blood pressure control (SBP less than 180 and diastolic
less than 100 to participate with therapy for ischemic stroke). Continue to monitor neurologic status.
right dominant hemiparesis: High risk for falls and sliding out of chair/bed. Safety reinforced.
- Avoid using affected arm to help lift or pull patient as this will cause trauma to the shoulder.
Dysarthria: speech
Aphasia: receptive and some expressive. speech
HTN: Carvedilol, Amlodipine 10mg. continue medications, monitor closely. Must be stable on po medication prior to discharge transfer
CKD: Vascepa 2 gram bid. bun 40, creatinine 1.8
Bowel: Colace and Senna, PRN bisacodyl
Bladder: Time void, PVRs, PRN straight cath.
GI Prophylaxis/GERD: Pantoprazole 40mg bid
DVT Prophylaxis: Mechanical and suggest heparin SC or lovenox
Pulmonary: Incentive spirometry
Safety: Continue to reinforce assistance with all transfers.
Thank you for allowing me to care for your patient. Please contact me with any questions or concerns.
[2023-08-03] MEDS: NON-FORMULARY ITEM 1 MG PO (16:47)
[2023-08-03] MEDS: NON-FORMULARY ITEM 1 GRAMS PO (18:19)
[2023-08-03] MEDS: LIPITOR 80 MG PO (18:19)
[2023-08-04 03:15] VITALS: BP 107/80
[2023-08-04 07:00] VITALS: BP 147/71
[2023-08-04] MEDS: ASPIR LOW (ENTERIC COATED) 81 MG PO (09:33)
[2023-08-04] MEDS: PLAVIX 75 MG PO (09:33)
[2023-08-04] MEDS: NORVASC 10 MG PO (09:33)
[2023-08-04] MEDS: KEPPRA 500 MG PO (09:33)
[2023-08-04] MEDS: VITAMIN C 500 MG PO (09:34)
[2023-08-04] MEDS: COREG 25 MG PO (09:34)
[2023-08-04] MEDS: FEOSOL 325 MG PO (09:34)
[2023-08-04] MEDS: PROTONIX 40 MG PO (09:34)
[2023-08-04] MEDS: OSCAL CAL 500 500 MG PO (09:34)
[2023-08-04] MEDS: NON-FORMULARY ITEM 2 GRAMS PO (09:35)
[2023-08-04 10:47] VITALS: BP 144/70; O2SAT 99
[2023-08-04 11:00] VITALS: BP 118/56
[2023-08-04] MEDS: ZETIA 10 MG PO (12:28)
[2023-08-04 12:30] VITALS: BP 140/60
[2023-08-04] MEDS: NON-FORMULARY ITEM 120 MG PO (13:25)
--- NOTE | 2023-08-04 14:00 | W.PN.HOSP.TC ---
Today's Communication/Plan
-
Discharge today
Assessment / Plan
Assessment / Plan
Physical Exam
General: Not in acute distress
HEENT: Normocephalic
Respiratory: Clear to Auscultation Bilaterally
Cardiac: S1/S2. RRR.
GI: Soft, Non Tender, Non Distended, Normal Bowel Sounds
Musculoskeletal: No Cyanosis, No Edema.
Skin: Warm and Dry
Neuro: Awake, alert, oriented. Cranial Nerves 2 through 12 grossly intact. RT hand sodder weakness and right wrist flexion/extension weak.
Psych, calm, pleasant, no agitation.
Assessment/Plan
#Right hand weakness concern for CVA/TIA vs. Compression Neuropathy
[id number]
#History of strokes�was revealed on CT head imaging at [facility]
-Plavix 75 mg given in ER ,continue 75 mg daily: discussed case on August 04, 2023 with pharmacist Scott Dela Cruz who mentioned that patient's first dose of Clopidogrel 75 mg daily was on August 01, 2023 at 22:52 in the emergency room and the first dose of
Aspirin 81 mg given here was on August 02, 2023, morning.
-Last day of DAPT is August 22, 2023 -- then clopidogrel alone
-Continue atorvastatin 80 mg HS, Vascepa 2 g twice daily, Zetia 10 mg daily
- LDL 42
- PT/OT/Case mgmt
-Appreciate neurology input
-Patient cannot have an MRI as his pacemaker is NOT MRI conditional
-Neurology ordered repeat CT scan -- no acute stroke seen
#History recent New onset seizures in ambulance on way to hospital
-Was treated at [facility] but per had normal EEG
-Continue Keppra 500 mg every 12 hours
# Current Prostate cancer - New dx at [facility]
Pet scan nml per
had tattoo hawkins made on Thursday 4 days ago for upcoming radiation
-Due to start radiation next week in [place] radiation Onc at [place]
-Continue Relugolix 120 mg
#HTN�benign
-Continue carvedilol 25 mg twice daily, amlodipine 10 mg daily
#HLD
LDL 42
-Continue Vascepa 2 g p.o. twice daily, Zetia 10 mg daily, atorvastatin 80 mg at bedtime
#CKD 3B
-Creat 1.6 is at baseline. Today is 1.8
-follows with [facility] in [place]
-BMP in 1 week
#GERD
-Continue Protonix 40 mg twice daily
#CAD/[place]/CABG x 5 vessel 2018
No chest pain
-Continue aspirin 81 mg daily, Lipitor, beta-claudia
#Permanent pacemaker/Hx heart block
3rd Pacemaker NOT MRI compatible per Pt and
#Normocytic anemia
Known GI bleeding, suspect chronic blood loss anemia.
Hgb 10.5, MCV 90.1(was prior 12.9 in April 2022)
dvt proph
scd's
Code Status: Full code
Diet: Regular Diet (as per patient and his 's request)
More than 30 minutes spent in discharge including
Final examination of the patient
Summarizing hospital stay
Instructions for continuing care to all relevant caregivers
Preparation of discharge records, prescriptions, and referral forms
Total time spent (in minutes): 39
Anticipated Discharge: Today
Subjective/Interval History
-
Date of Service: August 04, 2023
Patient was seen and examined. He reported no new symptoms or complaints.
Objective Data
-
Vital Signs:
Vital Signs
Temp Pulse Resp BP Pulse Ox
97.5 F 67 15 118/56 96
08/04/23 11:00 08/04/23 11:00 08/04/23 11:00 08/04/23 11:00 08/04/23 11:00
I&O
08/03/23 08/04/23 08/05/23
06:59 06:59 06:59
Intake Total 1140 / 1140 600 / 600
Output Total 800 / 800 225 / 225
Balance 340 / 340 375 / 375
--- NOTE | 2023-08-04 14:17 | CM ---
Reviewed chart, spoke with PT and attending. Patient medically cleared for discharge today. Spoke with Yessenia in admissions at [facility] who confirmed acceptance. Attending updated as well as RN and bank vault clerk.
Plan: Case management will continue to follow and assist with discharge planning. Vargas.
[2023-08-04 15:00] VITALS: BP 140/63
--- NOTE | 2023-08-04 15:11 | W.DS.TRANS ---
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
-
Discharge Instructions:
Discharge Diagnosis/Procedures #Right hand weakness concern for CVA/TIA vs.
Compression Neuropathy
#History of strokes�was revealed on CT head
imaging at [facility]
#Seizures
#Prostate cancer
#Hypertension
#Hyperlipidemia
#Chronic Kidney Disease Stage 3B
#Gastroesophageal Reflux Disease
#CAD/[place]/CABG x 5 vessel 2018
#Permanent pacemaker/history of heart block
#Normocytic anemia
Diet Low Fat,Low Cholesterol,Low Sodium
Activity As tolerated
Driving Restrictions No driving
Blood Work CBC, BMP and Magnesium with your Acute Rehab or
outpatient physicians within 1 week
Other Services PT,OT
Instructions:
Stand-Alone Forms:
Changes to Home Medications: Yes
Discharge Medications:
DC Medications w/original date entered in [employer]
Iron + Vitamin C 1 tab PO DAILY Supplement 08/01/23
amlodipine 10 mg tablet 10 mg PO DAILY Blood Pressure 08/01/23
atorvastatin 80 mg tablet 80 mg PO QPM High Cholesterol 08/01/23
calcium carbonate 600 mg PO BID Supplement 08/01/23
carvedilol 25 mg tablet 25 mg PO BID Blood Pressure 08/01/23
cholecalciferol (vitamin D3) 100 mcg (4,000 unit) tablet 100 mcg PO DAILY Supplement 08/01/23
ezetimibe 10 mg tablet 10 mg PO DAILY High Cholesterol 08/01/23
ibuprofen 200 mg tablet (Advil) 200 mg PO DAILYPRN PRN mild pain 08/01/23
icosapent ethyl 1 gram capsule (Vascepa) 2 g PO BID Antilipemic Agent, [place]- 08/01/23
levetiracetam 500 mg tablet 500 mg PO Q12H@0900,2100 Seizures 08/01/23
pantoprazole 40 mg tablet,delayed release 40 mg PO BID GERD 08/01/23
relugolix 120 mg tablet (Orgovyx) 120 mg PO DAILY Antineoplastic Agent 08/01/23
aspirin 81 mg tablet,delayed release 81 mg PO DAILY Blood Clot Prevention/Tx #0 tabs 08/04/23
clopidogrel 75 mg tablet 75 mg PO DAILY #30 tabs 08/04/23
Home Medication Changes
Clopidogrel is a new medication -- dual Antiplatelet Therapy with Aspirin 81 mg daily and Clopidogrel 75 mg daily until and including August 22, 2023; after August 22, 2023, then stop Aspirin and continue Clopidogrel
Ibuprofen on hold
Pending Results: No
Total time spent discharging patient (in min): 39
--- NOTE | 2023-08-07 10:42 | W.DCSUMMARY ---
Discharge Summary
Discharge Data
Date of Admission: 08/01/23
Date of Discharge: 08/04/23
Total time spent discharging patient (in min): 39
-
Pending Results: No
Hospital Course
82 y/o male with past medical history significant for ASCVD, hypertension, CKD and recent admission at [place] for suspected seizure activity who presented to the ED complaining of right hand weakness. Patient was started on Plavix in addition to
his home Aspirin. Neurology was consulted. CTA Head and Neck was done. CT Head as per radiologist's report showed no acute intracranial abnormality, but did show right frontal, right cerebellar, left occipital chronic infarcts as seen prior, as per
radiologist's report. It was noted that patient could have an MRI as his pacemaker was NOT MRI conditional.
Discharge Plan
-
Patient Disposition: Acute Rehab Facility
Discharge Diagnosis/Procedures: #Right hand weakness concern for CVA/TIA vs. Compression Neuropathy
#History of strokes�was revealed on CT head imaging at [facility]
#Seizures
#Prostate cancer
#Hypertension
#Hyperlipidemia
#Chronic Kidney Disease Stage 3B
#Gastroesophageal Reflux Disease
#CAD/[place]/CABG x 5 vessel 2018
#Permanent pacemaker/history of heart block
#Normocytic anemia
Condition: Fair
Diet: Low Fat, Low Cholesterol and Low Sodium
Activity: As tolerated
Driving Restrictions: No driving
Blood Work: CBC, BMP and Magnesium with your Acute Rehab or outpatient physicians within 1 week
Other Services: PT and OT
Activity Restrictions/Additional Instructions:
Dual Antiplatelet Therapy with Aspirin 81 mg daily and Clopidogrel 75 mg daily until and including August 22, 2023; after August 22, 2023, then stop Aspirin and continue Clopidogrel
Referrals:
Abby Rashid, DO [Family Provider] - in less than 1 week
Additional Discharge Medication Instructions: Clopidogrel is a new medication -- dual Antiplatelet Therapy with Aspirin 81 mg daily and Clopidogrel 75 mg daily until and including August 22, 2023; after August 22, 2023, then stop Aspirin and continue
Clopidogrel
Ibuprofen on hold
Prescriptions:
New
clopidogrel 75 mg Tablet
75 mg PO DAILY Qty: 30 3RF
Continued
atorvastatin 80 mg Tablet
80 mg PO QPM
carvedilol 25 mg Tablet
25 mg PO BID
levetiracetam 500 mg Tablet
500 mg PO Q12H@0900,2100
calcium carbonate 600 mg calcium (1,500 mg) Tablet
600 mg PO BID
amlodipine 10 mg Tablet
10 mg PO DAILY
pantoprazole 40 mg Tablet,Delayed Release (Dr/Ec)
40 mg PO BID
ezetimibe 10 mg Tablet
10 mg PO DAILY
cholecalciferol (vitamin D3) 100 mcg (4,000 unit) Tablet
100 mcg PO DAILY
icosapent ethyl [Vascepa] 1 gram Capsule
2 g PO BID
Orgovyx 120 mg Tablet
120 mg PO DAILY
Iron + Vitamin C
1 tab PO DAILY
Rx Instructions:
iron 65mg, vitamin C 125mg
aspirin 81 mg Tablet,Delayed Release (Dr/Ec)
81 mg PO DAILY Qty: 0 0RF
Rx Instructions:
Last day of this medication should be August 22, 2023
Held
ibuprofen [Advil] 200 mg Tablet
200 mg PO DAILYPRN PRN (Reason: mild pain)
Hold Instructions: Resume on 08/19/23. Resume if and only if your outpatient physicians say it is okay to resume this medication.
Rx Instructions:
Resume on 08/19/2023. Resume if only outpatient physians say it is ok to resume this medication
Discharge Orders:
Discharge Patient (As Directed); Ordered 08/04/23
Ordered By: Mihai Junior
Discharge Date and Time
Discharge Date/Time: 08/04/23 15:52
Print Language: KYRGYZ
== END 2023-08-04 15:52 | DRG 65 ==
LOC: 3 WEST ACU 09:05
PROVIDERS: Clinical Nurse Specialist Family Health; Internal Medicine; ADMITTING PHYSICIAN Hospitalist; ATTENDING PHYSICIAN Hospitalist; CONSULT PHYSICIAN Physical Medicine & Rehabilitation; CONSULT PHYSICIAN Psychiatry & Neurology Neurology; EMERGENCY PHYSICIAN Student in an Organized Health Care Education/Training Program; FAMILY PHYSICIAN Internal Medicine
DX: I63.9 Cerebral infarction, unspecified (principal); G81.91 Hemiplegia, unspecified affecting right dominant side; N18.32 Chronic kidney disease, stage 3b; I12.9 Hypertensive chronic kidney disease with stage 1 through stage 4 chronic kidney disease, or unspecified chronic kidney disease; I25.10 Atherosclerotic heart disease of native coronary artery without angina pectoris; I45.9 Conduction disorder, unspecified; R56.9 Unspecified convulsions; M54.12 Radiculopathy, cervical region; C61 Malignant neoplasm of prostate; D50.0 Iron deficiency anemia secondary to blood loss (chronic); K21.9 Gastro-esophageal reflux disease without esophagitis; R27.0 Ataxia, unspecified; E78.5 Hyperlipidemia, unspecified; Z79.82 Long term (current) use of aspirin; Z95.0 Presence of cardiac pacemaker; Z86.73 Personal history of transient ischemic attack (TIA), and cerebral infarction without residual deficits; Z95.1 Presence of aortocoronary bypass graft; I25.2 Old myocardial infarction; Z80.0 Family history of malignant neoplasm of digestive organs; Z82.0 Family history of epilepsy and other diseases of the nervous system; Z95.2 Presence of prosthetic heart valve
CPT/HCPCS: 70450; 70496; 70498; 80048; 80053; 80061; 80177; 82962; 83036; 83540; 83550; 84484; 85025; 85027; 85576; 85610; 85730; 92523; 92610; 93005; 97110; 97112; 97116; 97162; 97167; 97530; 97535; 99285; Q9967

== ENCOUNTER 2023-08-29 20:15 | Emergency (ER) | payer MEDICARE, OTHER, SELFPAY ==
[2023-08-29 20:22] VITALS: BMI 25.4
[2023-08-29 20:31] VITALS: BP 123/66
[2023-08-29 22:00] VITALS: BP 124/61
[2023-08-29 22:59] LABS: % Basophils 0.9 % (0-2); % Eosinophils 2.6 % (0-6); % Immature Granulocytes 0.4 % (0-0.5); % Lymphocytes 10.6 % (20.5-51.1); % Monocytes 9.6 % (1.7-9.3); % Neutrophils 75.9 % (42.2-75.2); Absolute Basophils 0.1 10^3/uL (0-0.2); Absolute Eosinophils 0.2 10^3/uL (0-0.7); Absolute Lymphocytes 0.7 10^3/uL (1.2-3.4); Absolute Monocytes 0.7 10^3/uL (0.1-0.6); Absolute Neutrophils 5.3 10^3/uL (1.4-6.5); Hematocrit 30.8 % (39.0-52.0); Hemoglobin 10.8 g/dL (13.0-18.0); Mean Corp Hgb Conc. 35.1 g/dL (33.0-37.0); Mean Corpuscular Hgb 30.6 pg (27.0-31.0); Mean Corpuscular Volume 87.3 fL (80.0-94.0); Mean Platelet Volume 12.6 fL (7.4-10.4); Nucleated Red Blood Cells % 0 % (-); Platelet Count 148 10^3/uL (130-400); Red Blood Cell Count 3.53 10^6/uL (4.70-6.10)
[2023-08-29 23:00] VITALS: BP 138/69
[2023-08-29 23:09] VITALS: BP 114/59
[2023-08-29 23:15] VITALS: BP 120/59
[2023-08-29 23:16] LABS: Blood Urea Nitrogen 47 mg/dl (9-20); Carbon Dioxide 25 mmol/L (22-30); Chloride 106 mmol/L (98-107); Estimated Creatinine Clearance 32 ml/min; Glucose 153 mg/dl (70-99); Sodium 137 mmol/L (135-145)
[2023-08-29 23:18] VITALS: BP 114/59; BP 120/59; BP 138/69; PULSE 76; PULSE 78; PULSE 79
--- NOTE | 2023-08-29 23:21 | ED.GENMED ---
History of Present Illness
General
Chief Complaint: Fainting/Passed Out
Source: patient and family
Time Seen by Provider: 08/29/23 22:32
Travel History
Have you had any contact with someone who has COVID-19?: No
Do you have any symptoms of coronavirus? Fever > 100 degrees, chills, cough, shortness of breath, sore throat, loss of taste or smell, muscle aches, or headache?: No
History of Present Illness
History of Present Illness:
82-year-old male with past medical history of recent CVA about 1 month ago, hypertension, MT, status post pacemaker placement presenting to the emergency department for evaluation after he had a witnessed syncopal episode at home after he was
sitting outside for about 30 minutes and had gotten up to go inside. Family states they noticed him looking a little pale and unwell and they were trying to help him get into the house. Patient sat on the chair and upon sitting down proceeded to
syncopized with family stating he was out for about 5 minutes. Patient states that after he came to he felt much better and is felt back to his normal self after EMS brought him here and administered about 200 mL of normal saline. Family reports
that patient was recently admitted at this hospital due to the CVA and had been at [facility] for a couple of weeks. They note that patient had not drank much today and they felt that his syncope was likely related to some dehydration. Patient has
no other concerns at this time and denies any chest pain, headache, visual disturbances, focal weakness or numbness or any other concerns.
Past History
Past History
ED Past Medical History: CAD, Cancer (prostate), CVA, GERD, HTN, Seizures and Other (Heart block); Negative Renal failure
ED Past Surgical History: Cardiac (Pacemaker, CABG x 2017), Cholecystectomy and Tonsilectomy
Social History
Tobacco: Non-smoker
Alcohol: None
Drug: None
Personal:
Living: with family
Employment: Retired
Family History
Family History: Other (reviewed and noncontributory)
Review of Systems
Review of Systems
All Other Systems: ROS reviewed and negative except as documented in HPI and ROS
Phy Exam
Physical Exam
Physical Exam:
GENERAL: Alert , in no apparent distress, smiling and pleasant
EYE: conjunctiva clear
NECK: Supple
ENT: o/p clr, mmm.
CARDIAC: Regular rate and rhythm
LUNGS: Clear breath sounds bilaterally, no acute respiratory distress, no wheezes/rales/rhonchi
Abdomen: Soft, nontender, nondistended, there is older appearing ecchymosis to the right lower abdomen which family states is from the recent Lovenox injections that he was getting
NEUROLOGICAL: Alert and oriented
SKIN: Warm and dry, skin intact.
MUSCULOSKELETAL: well perfused.
PSYCH: Normal and appropriate interaction.
Scores
Heart Failure Risk
Heart Failure Risk Score: Not Applicable
Heart Score for Chest Pain Patients
STEMI patient?: Not applicable
Withdrawal Assessment of Alcohol
Withdrawal Assessment Completed?: Not applicable
Course
Orders/Labs/Results
Orders:
Orders
08/29/23 22:33
Electrocardiogram (*1) Urgent
Reason for Study: Syncope
EKG- Treatment ONCE
Interrogate Pacemaker- Treatment ONCE
08/29/23 22:45
Orthostatic VS- Treatment ONCE
08/29/23 22:55
Basic Metabolic Panel Urgent
Complete Blood Count/With Diff Urgent
08/29/23 23:25
0.9% Sodium Chloride 500 ml [Nss] 500 ml IV BOLUS
08/29/23 23:38
Potassium Urgent
Abnormal Lab Results
08/29/23
22:55
RBC 3.53 L 10^6/uL
(4.70-6.10)
Hgb 10.8 L g/dL
(13.0-18.0)
Hct 30.8 L %
(39.0-52.0)
MPV 12.6 H fL
(7.4-10.4)
Absolute Lymphs (auto) 0.7 L 10^3/uL
(1.2-3.4)
Absolute Monos (auto) 0.7 H 10^3/uL
(0.1-0.6)
Neutrophils % 75.9 H %
(42.2-75.2)
Lymphocytes % 10.6 L %
(20.5-51.1)
Monocytes % 9.6 H %
(1.7-9.3)
BUN 47 H mg/dl
(9-20)
Creatinine 1.9 H mg/dL
(0.7-1.3)
Glucose 153 H mg/dl
(70-99)
08/29/23 22:55
08/29/23 23:38
Vital Signs
Initial and Last Documented VS:
Initial Vital Signs
Temp Pulse Resp BP Pulse Ox
97.6 F 78 16 123/66 100
08/29/23 20:31 08/29/23 20:31 08/29/23 20:31 08/29/23 20:31 08/29/23 20:31
Last Documented Vital Signs
Temp Pulse Resp BP Pulse Ox
97.6 F 77 13 142/72 98
08/29/23 20:31 08/30/23 00:00 08/30/23 00:00 08/30/23 00:00 08/29/23 23:15
MDM/Problems Addressed
Differential Diagnosis Includes:
Orthostasis, vasovagal event, cardiac dysrhythmia, electrolyte disturbance
MDM/Problems Addressed:
82-year-old male presenting emergency department for evaluation after suspected syncopal event. He arrives stating he has no concerns at this time. Patient with recent admission to this facility for CVA. Currently taking Plavix but denies any
head injury and family was present at the time stating he did not hit his head either. Patient has a pacemaker placed so will perform pacemaker interrogation to evaluate if there are any cardiac dysrhythmia. Will also check lab work. Reassessment
following
Chronic conditions affecting care: CAD and Arrhythmia
*Pulse Oximetry
Patient hypoxic: no
*EKG
Interpreted by ED Provider?: Yes
Heart Rate: 76
Rate: normal
Rhythm: ventricular paced
*Banana Room Cutter Interpretation
Rate: normal
Rhythm: ventricular paced
*Critical Care Note
Total Time (30-74mins, 75-104mins- exclusive of procedures): Not Applicable
Data Reviewed
Review of Other/Old Records Reveals: Labs, Records and Discharge Summary
Source: patient
Patient Management
Social determinants of health affecting care: Living situation and Strong social support
Escalation/DeEscalation of care consider admission/obs:
Patient's labs appear to be at baseline although his BUN and creatinine are slightly higher than usual which likely signifies some mild dehydration which goes with patient's story of not drinking much today. He was given an additional 500 mL of IV
fluids. The pacemaker interrogation shows no abnormal ectopy at the time of patient's syncope. He remains asymptomatic and feels well and would like to be discharged home. He will follow-up with his civil litigation attorney. Patient and family are all aware
of return precautions.
ED Attending Note
-
Portions of this chart may have been created with voice recognition software.� Occasional wrong word or��sound alike� substitutions may have occurred due to the inherent limitations of voice recognition software.
Discharge Plan
Departure
Patient Disposition: Home (Routine Discharge)
Date of Disposition: 08/29/23
Time of Disposition: 23:56
Patient with high blood pressure during this ER visit?: No
Discharge Problem:
Orthostasis
Instructions: Syncope (Fainting) (DC)
Prescriptions:
No Action
atorvastatin 80 mg Tablet
80 mg PO QPM
carvedilol 25 mg Tablet
25 mg PO BID
levetiracetam 500 mg Tablet
500 mg PO Q12H@0900,2100
pantoprazole 40 mg Tablet,Delayed Release (Dr/Ec)
40 mg PO BID
ezetimibe 10 mg Tablet
10 mg PO DAILY
cholecalciferol (vitamin D3) 100 mcg (4,000 unit) Tablet
100 mcg PO DAILY
icosapent ethyl [Vascepa] 1 gram Capsule
2 g PO BID
Orgovyx 120 mg Tablet
120 mg PO DAILY
nifedipine 30 mg Tablet Extended Release
30 mg PO DAILY 30 Days Qty: 30 0RF
clopidogrel 75 mg Tablet
75 mg PO DAILY 30 Days Qty: 30 0RF
ferrous sulfate [FeroSul] 325 mg (65 mg iron) Tablet
325 mg PO DAILY 30 Days Qty: 30 0RF
nifedipine 30 mg tablet extended release
60 mg PO HS 30 Days Qty: 60 0RF
Referrals:
Abby Rashid DO [Family Provider] -
Interventions
Interventions:
*Risk Screen - Suicide Last Done: 08/29/23 21:29
*General Assessment Last Done: 08/29/23 21:29
*Neglect/Abuse Screening Last Done: 08/29/23 21:29
ED- Fall Risk Assessment Last Done: 08/29/23 21:31
*ED COVID-19 Vaccine History Last Done: 08/29/23 21:29
*Nursing Disposition Last Done: 08/30/23 00:29
ED- Cardiac Assessment Last Done: 08/29/23 23:44
ED- Neurological Assessment Last Done: 08/29/23 23:44
Discharge Date and Time
Discharge Date/Time: 08/30/23 00:29
Print Language: [id number]
[2023-08-29] MEDS: NSS 500 IV (23:39)
[2023-08-29 23:58] LABS: Potassium 4.8 mmol/L (3.5-5.1)
[2023-08-30] VITALS: BP 142/72
== END 2023-08-30 00:29 | disposition home or self-care (01) ==
LOC: EMR 20:15
PROVIDERS: Physician Assistant Medical; EMERGENCY PHYSICIAN Emergency Medicine; FAMILY PHYSICIAN Internal Medicine
DX: R55 Syncope and collapse (principal); I25.10 Atherosclerotic heart disease of native coronary artery without angina pectoris; K21.9 Gastro-esophageal reflux disease without esophagitis; I10 Essential (primary) hypertension; Z79.02 Long term (current) use of antithrombotics/antiplatelets; Z86.73 Personal history of transient ischemic attack (TIA), and cerebral infarction without residual deficits; Z90.49 Acquired absence of other specified parts of digestive tract; Z95.0 Presence of cardiac pacemaker; Z95.1 Presence of aortocoronary bypass graft
CPT/HCPCS: 99283; 80048; 84132; 85025; 93005

== ENCOUNTER 2024-02-08 17:28 | Inpatient (IN) | payer MEDICARE, OTHER, SELFPAY ==
[2024-02-08] VITALS (11 sets, daily range): BP systolic 103–185; BP diastolic 50–86; PULSE 68–83; BMI 24.4
[2024-02-08 12:05] LABS: % Basophils 0.5 % (0-2); % Eosinophils 2.8 % (0-6); % Immature Granulocytes 0.5 % (0-0.5); % Lymphocytes 7.9 % (20.5-51.1); % Monocytes 9.8 % (1.7-9.3); % Neutrophils 78.5 % (42.2-75.2); Absolute Eosinophils 0.2 10^3/uL (0-0.7); Absolute Lymphocytes 0.5 10^3/uL (1.2-3.4); Absolute Monocytes 0.6 10^3/uL (0.1-0.6); Absolute Neutrophils 4.6 10^3/uL (1.4-6.5); Hematocrit 29.5 % (39.0-52.0); Hemoglobin 10.1 g/dL (13.0-18.0); Mean Corp Hgb Conc. 34.2 g/dL (33.0-37.0); Mean Corpuscular Hgb 31.6 pg (27.0-31.0); Mean Corpuscular Volume 92.2 fL (80.0-94.0); Mean Platelet Volume 11.2 fL (7.4-10.4); Nucleated Red Blood Cells % 0 % (-); Platelet Count 125 10^3/uL (130-400); Red Cell Dist. Width 14.1 % (11.5-14.5); White Blood Cell Count 5.8 10^3/uL (4.8-10.8)
[2024-02-08 12:19] LABS: ALT (SGPT) 35 U/L (0-50); AST (SGOT) 33 U/L (17-59); Albumin 2.5 g/dl (3.5-5.0); Alkaline Phosphatase 32 U/L (38-126); Blood Urea Nitrogen 28 mg/dl (9-20); Calcium 6.9 mg/dl (8.4-10.2); Carbon Dioxide 15 mmol/L (22-30); Chloride 120 mmol/L (98-107); Glucose 139 mg/dl (70-99); Potassium 3.4 mmol/L (3.5-5.1); Sodium 142 mmol/L (135-145); Total Bilirubin 0.8 mg/dl (0.2-1.3); Total Protein 4.7 g/dl (6.3-8.2); eGFR 54.85
[2024-02-08 12:25] LABS: Troponin I 0.018 ng/ml
--- NOTE | 2024-02-08 14:25 | ED.GENMED ---
History of Present Illness
<Jeremy Simpson PA-C - Last Filed: 02/08/24 15:55>
General
Chief Complaint: Fainting/Passed Out
Source: patient
Exam Limitations: none
Time Seen by Provider: 02/08/24 13:30
History of Present Illness
History of Present Illness:
83-year-old male presents via EMS from home after syncopal episode. He is working with his occupational therapist recovering from a stroke he had this spring and stood up and felt lightheaded and passed out. It took him quite some time to come to
per the family. He also had an episode of diarrhea prior to this episode. Patient denies recalling any chest pain shortness of breath abdominal pain. He denies any headache. No vomiting. He does have history of syncope. No recent fever. No
other complaints at this time
Past History
<Yana Navarro MD - Last Filed: 02/08/24 15:20>
Past History
ED Past Medical History: CAD, Cancer (prostate), CVA, GERD, HTN, Seizures and Other (Heart block); Negative Renal failure
ED Past Surgical History: Cardiac (Pacemaker, CABG x 5 2017), Cholecystectomy and Tonsilectomy
Social History
Tobacco: Non-smoker
Alcohol: None
Drug: None
Personal:
Living: with family
Employment: Retired
Family History
Family History: Other (reviewed and noncontributory)
Phy Exam
<Jeremy Simpson PA-C - Last Filed: 02/08/24 15:55>
Physical Exam
Physical Exam:
General: Well appearing male, NAD
HEENT: NC/AT,
heart: RRR, no murmurs
Lungs; CTA, no wheeze
Abd; soft, nontender, non distended
Extremities: No cyanosis
Neurologic exam: Alert and oriented no facial asymmetry conversing appropriately chronic deficit to right side which is mild
Course
<Jeremy Simpson PA-C - Last Filed: 02/08/24 15:55>
Orders/Labs/Results
Orders:
Orders
02/08/24 11:48
Electrocardiogram (*1) Urgent
Reason for Study: Syncope
02/08/24 11:49
EKG- Treatment ONCE
02/08/24 11:53
Complete Blood Count/With Diff Urgent
Comprehensive Metabolic Panel Urgent
Magnesium Urgent
Phosphorus Urgent
Troponin I Urgent
02/08/24 14:20
Interrogate Pacemaker- Treatment ONCE
Calcium Gluconate 1,000 mg IV NOW STA
02/08/24 14:21
Add On- LAB Urgent
Tests Added?: magnesium, phosphate,
02/08/24 14:29
Add On- LAB Urgent
Tests Added?: carbon dioxide
02/08/24 14:37
Venous Blood Gas Urgent
%Oxygen/Room Air: RA
Abnormal Lab Results
02/08/24 02/08/24
11:53 14:37
RBC 3.20 L 10^6/uL
(4.70-6.10)
Hgb 10.1 L g/dL
(13.0-18.0)
Hct 29.5 L %
(39.0-52.0)
MCH 31.6 H pg
(27.0-31.0)
Plt Count 125 L 10^3/uL
(130-400)
MPV 11.2 H fL
(7.4-10.4)
Absolute Lymphs (auto) 0.5 L 10^3/uL
(1.2-3.4)
Neutrophils % 78.5 H %
(42.2-75.2)
Lymphocytes % 7.9 L %
(20.5-51.1)
Monocytes % 9.8 H %
(1.7-9.3)
VBG pH 7.31 L
(7.32-7.43)
VBG pO2 56 H mmHg
(30-50)
Potassium 3.4 L mmol/L
(3.5-5.1)
Chloride 120 H mmol/L
(98-107)
Carbon Dioxide 15 L mmol/L
(22-30)
BUN 28 H mg/dl
(9-20)
Glucose 139 H mg/dl
(70-99)
Calcium 6.9 L* mg/dl
(8.4-10.2)
Phosphorus 2.4 L mg/dl
(2.5-4.5)
Magnesium 1.4 L mg/dl
(1.6-2.3)
Alkaline Phosphatase 32 L U/L
(38-126)
Total Protein 4.7 L g/dl
(6.3-8.2)
Albumin 2.5 L g/dl
(3.5-5.0)
02/08/24 11:53
02/08/24 14:24
Vital Signs
Initial and Last Documented VS:
Initial Vital Signs
Pulse Resp
66 18
02/08/24 11:48 02/08/24 11:48
Last Documented Vital Signs
Temp Pulse Resp BP Pulse Ox
97.4 F 65 14 144/59 95
02/08/24 12:09 02/08/24 13:45 02/08/24 13:45 02/08/24 13:00 02/08/24 13:45
<Yana Navarro MD - Last Filed: 02/08/24 15:20>
Orders/Labs/Results
Orders:
Orders
02/08/24 11:48
Electrocardiogram (*1) Urgent
Reason for Study: Syncope
02/08/24 11:49
EKG- Treatment ONCE
02/08/24 11:53
Complete Blood Count/With Diff Urgent
Comprehensive Metabolic Panel Urgent
Magnesium Urgent
Phosphorus Urgent
Troponin I Urgent
02/08/24 14:20
Interrogate Pacemaker- Treatment ONCE
Calcium Gluconate 1,000 mg IV NOW STA
02/08/24 14:21
Add On- LAB Urgent
Tests Added?: magnesium, phosphate,
02/08/24 14:29
Add On- LAB Urgent
Tests Added?: carbon dioxide
02/08/24 14:37
Venous Blood Gas Urgent
%Oxygen/Room Air: RA
Abnormal Lab Results
02/08/24 02/08/24
11:53 14:37
RBC 3.20 L 10^6/uL
(4.70-6.10)
Hgb 10.1 L g/dL
(13.0-18.0)
Hct 29.5 L %
(39.0-52.0)
MCH 31.6 H pg
(27.0-31.0)
Plt Count 125 L 10^3/uL
(130-400)
MPV 11.2 H fL
(7.4-10.4)
Absolute Lymphs (auto) 0.5 L 10^3/uL
(1.2-3.4)
Neutrophils % 78.5 H %
(42.2-75.2)
Lymphocytes % 7.9 L %
(20.5-51.1)
Monocytes % 9.8 H %
(1.7-9.3)
VBG pH 7.31 L
(7.32-7.43)
VBG pO2 56 H mmHg
(30-50)
Potassium 3.4 L mmol/L
(3.5-5.1)
Chloride 120 H mmol/L
(98-107)
Carbon Dioxide 15 L mmol/L
(22-30)
BUN 28 H mg/dl
(9-20)
Glucose 139 H mg/dl
(70-99)
Calcium 6.9 L* mg/dl
(8.4-10.2)
Phosphorus 2.4 L mg/dl
(2.5-4.5)
Magnesium 1.4 L mg/dl
(1.6-2.3)
Alkaline Phosphatase 32 L U/L
(38-126)
Total Protein 4.7 L g/dl
(6.3-8.2)
Albumin 2.5 L g/dl
(3.5-5.0)
02/08/24 11:53
02/08/24 14:24
Vital Signs
Initial and Last Documented VS:
Initial Vital Signs
Pulse Resp
66 18
02/08/24 11:48 02/08/24 11:48
Last Documented Vital Signs
Temp Pulse Resp BP Pulse Ox
97.4 F 65 14 144/59 95
02/08/24 12:09 02/08/24 13:45 02/08/24 13:45 02/08/24 13:00 02/08/24 13:45
<Jeremy Simpson PA-C - Last Filed: 02/08/24 15:55>
MDM/Problems Addressed
Differential Diagnosis Includes:
Syncope. Question arrhythmia versus electrolyte abnormality versus orthostasis. Patient has a pacemaker will interrogate. Check labs. Does not sound like seizure.
<Jeremy Simpson PA-C - Last Filed: 02/08/24 15:55>
*Critical Care Note
Total Time (30-74mins, 75-104mins- exclusive of procedures): Not Applicable
<Jeremy Simpson PA-C - Last Filed: 02/08/24 15:55>
Update Note
Update Note:
Calcium is noted to be 6.9. Pacemaker was requested to be interrogated. No arrhythmias noted on monitor. Hemoglobin 10.1. Discussed with emergency room attending. Syncope could be multifactorial between volume loss with recent diarrhea versus
orthostasis versus related to electrolyte abnormality. IV calcium gluconate ordered. Will admit to hospital
ED Attending Note
<Yana Navarro MD - Last Filed: 02/08/24 15:20>
ED Attending Note
Patient seen and examined by attending physician: Yes
I performed the substantive portion of visit, reviewed & personally made and approve the management plan that is documented in note by myself or KEI.: Yes
ED Attending Note:
Patient is breathing comfortably. Heart sounds regular. Patient has an acidosis and low electrolytes of potassium, calcium and phosphorus. This may be due to ongoing diarrhea. Abdomen is soft and nontender.
-
Portions of this chart may have been created with voice recognition software.� Occasional wrong word or��sound alike� substitutions may have occurred due to the inherent limitations of voice recognition software.
Discharge Plan
Departure
Patient Disposition: Admit
Date of Disposition: 02/08/24
Time of Disposition: 15:55
Admit to: Telemetry
Presentation/result/management discussed w/ accepting MD/DO: Hospitalist
Discharge Problem:
Syncope, Hypocalcemia
Prescriptions:
No Action
atorvastatin 80 mg Tablet
80 mg PO QPM
carvedilol 25 mg Tablet
25 mg PO BID
levetiracetam 500 mg Tablet
500 mg PO Q12H
pantoprazole 40 mg Tablet,Delayed Release (Dr/Ec)
40 mg PO QPM
ezetimibe 10 mg Tablet
10 mg PO DAILY
icosapent ethyl [Vascepa] 1 gram Capsule
2 g PO BID
nifedipine 30 mg Tablet Extended Release
30 mg PO DAILY 30 Days Qty: 30 0RF
clopidogrel 75 mg Tablet
75 mg PO DAILY 30 Days Qty: 30 0RF
nifedipine 30 mg tablet extended release
60 mg PO HS 30 Days Qty: 60 0RF
Referrals:
Abby Rashid DO [Family Provider] -
Interventions
Interventions:
*Risk Screen - Suicide Last Done: 02/08/24 11:50
*General Assessment Last Done: 02/08/24 11:50
*Neglect/Abuse Screening Last Done: 02/08/24 11:50
*ED COVID-19 Vaccine History Last Done: 02/08/24 11:50
ED- Cardiac Assessment Last Done: 02/08/24 11:49
ED- Neurological Assessment Last Done: 02/08/24 11:49
Discharge Date and Time
Print Language: UPPER SORBIAN
[2024-02-08] MEDS: CALCIUM GLUCONATE 1000 MG IV (14:38)
[2024-02-08 14:49] LABS: Venous Blood Gas B.E. -3.6 mmol/L (-4 to +4); Venous Blood Gas HCO3 22.7 mmol/L (22-27); Venous Blood Gas O2 Sat % 85.4 %; Venous Blood Gas pCO2 45 mmHg (35-48); Venous Blood Gas pH 7.31 (7.32-7.43); Venous Blood Gas pO2 56 mmHg (30-50)
[2024-02-08 14:53] LABS: Magnesium 1.4 mg/dl (1.6-2.3); Phosphorus 2.4 mg/dl (2.5-4.5)
--- NOTE | 2024-02-08 16:28 | HPS.HSE ---
Family Physician
-
Family Physician: Abby Rashid DO
Chief Complaint
-
Syncope, diarrhea
History of Present Illness
83-year-old male from home with syncopal episode from home. Patient has been following with PT/OT 45 minutes twice a week after completing radiation therapy this entire summer for prostate cancer. He was at home today had sensation he had to have
a bowel movement he was walking towards the bathroom in the basement with the physical therapist when the physical therapist had him sit down his blood pressure was 116/67 with heart rate 74. The daughter reported the therapist came upstairs to
grab his Iva by the time they both came back downstairs the patient was passed out sitting up his repeat blood pressure was 80/44 heart rate of 30s. He was incontinent of diarrhea due to lack of ability to get to bathroom from hypotension.
He has not had any ongoing diarrhea. He has had some lack of oral intake over the past few days from baseline. The patient denies headache, dizziness, blurred vision, sore throat, fever, chills, chest pain, palpitations, shortness breath, cough,
abdominal pain, nausea, vomiting, urinary symptoms.
History of prior stroke Aug 01 2023 with right hand weakness then overall deconditioning. He had a 20/2-week admission inpatient to [facility] then was going outpatient until his radiation this summer. He paused PT OT then resumed after that was
completed for overall deconditioning . He has history of seizures in July after a prior stroke he is currently maintained on Keppra
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
block�permanent pacemaker placement, HTN, GERD, CKD 3B
Medical History
Past Medical History
Past Medical History: Reports Other
Additional Past Medical History:
Old CVA's per CT at [place]
new onset seizures July 17, 2023 [facility]
CVA right hemiparesis August 01, 2023
prostate cancer new diagnosis few weeks ago except for radiation with [facility]ology in [place] meeting next week
HTN
CKD 3B
CAD/VT/CABG x 5 vessel 2017
heart block�permanent pacemaker-has had 3 they are not MRI compatible
GERD.
Past Surgical History: Reports Other
Additional Past Surgical History:
Cardiac bypass x 5 in 2018 at [facility]
Mitral Valve replacement
Tonsillectomy
Cholecystectomy
[place] teeth extraction
Social History
Tobacco: Non-smoker
Alcohol: None
Drug: None
Personal:
Living: With Family ( iva )
Employment: Retired
Family History
Family History: Other (dad pancreatic cancer, mother alzheimers, Brother - age 73 Brain hemorrhage 2017)
Allergies / Home Medications
Allergies reflects when Allergies were last updated in [facility].
Home Medications with original date entered in [facility]
Allergy/Medication List:
Allergies
Allergy/AdvReac Type Severity Reaction Status Date / Time
No Known Allergies Allergy Verified 04/19/22 14:05
Home Medications
atorvastatin 80 mg tablet 80 mg PO QPM High Cholesterol 08/01/23
carvedilol 25 mg tablet 25 mg PO BID Blood Pressure 08/01/23
ezetimibe 10 mg tablet 10 mg PO DAILY High Cholesterol 08/01/23
icosapent ethyl 1 gram capsule (Vascepa) 2 g PO BID Antilipemic Agent, Valentines- 08/01/23
levetiracetam 500 mg tablet 500 mg PO Q12H Seizures 08/01/23
pantoprazole 40 mg tablet,delayed release 40 mg PO QPM GERD 08/01/23
clopidogrel 75 mg tablet 75 mg PO DAILY cva 30 days #30 tabs 08/21/23
nifedipine 30 mg tablet,extended release 30 mg PO DAILY Blood pressure 30 days #30 tabs 08/21/23
nifedipine 30 mg tablet,extended release 60 mg (2 x 30 mg) PO HS 30 days #60 tabs 08/21/23
Review of Systems
-
History Source: Patient and Family ( Iva Clifford at bedside)
A 12 point ROS was completed and negative except as noted: Yes
Constitutional: Denies Fever, Fatigue or Chills
EENT: Denies Sore Throat, Mouth Swelling or Runny Nose
Respiratory: Denies Cough or Trouble Breathing
Cardiac: Reports Syncope; Denies Chest Pain, Diaphoresis or Palpitations
Abdomen/GI: Reports Diarrhea (X 1 episode today during vasovagal episode); Denies Abdominal Pain, Nausea, Vomiting, Constipated, Bloody Stools or Black Stools
: Denies Dysuria or Frequency
Musculoskeletal: Denies Joint Pain, Joint Swelling or Edema
Skin: Denies Itching or Rash
Neurological: Denies Dizzy or Headache
Endocrine: Reports No Symptoms
Hematologic/Lymphatic: Reports No Symptoms
Psych: Reports Calm
Physical Exam
Vital Signs
Vital Signs
Temp Pulse Resp BP Pulse Ox
97.4 F 65 14 144/59 95
02/08/24 12:09 02/08/24 13:45 02/08/24 13:45 02/08/24 13:00 02/08/24 13:45
Physical Exam
General: Comfortable and Conversant; No Pain, Fever or Chills
HEENT: NormoCephalic, Anicteric, Moist mucous membranes, PERRLA, [place] Conjunctivae and No Ptosis
Respiratory: Clear; No Wheezes, Rales or Rhonchi
Cardiac: S1/S2 and Regular Rhythm; No Murmur, Rub, Gallop or Peripheral Edema
Breast: Deferred by me
GI: Soft, Non Tender, Non Distended, Normal Bowel Sounds and No Hepatosplenomegaly
Rectal: Deferred by Provider
Genito-urinary: Deferred by me
Musculoskeletal: No Clubbing, No Cyanosis and No Edema
Skin: Warm and Dry; No Rash or Jaundice
Neuro: AO x 3 (Has some short-term memory impairment), Nonfocal/grossly intact and No Sensory Deficits; No No Motor Deficits, Slurred Speech, Facial Droop, Tremors or Sedated
Psych: Calm
Laboratory Results
-
02/08/24 11:53
02/08/24 14:24
Laboratory Results
Total Bilirubin 0.8 mg/dl (0.2-1.3) 02/08/24 11:53
AST 33 U/L (17-59) 02/08/24 11:53
ALT 35 U/L (0-50) 02/08/24 11:53
Alkaline Phosphatase 32 U/L (38-126) L 02/08/24 11:53
Troponin I 0.018 ng/ml 02/08/24 11:53
Impression/Plan
-
Impression/plan:
Inpatient telemetry
# Vasovagal syncope/orthostatic hypotension/Hx HTN�benign
-At home vitals per physical therapist 116/67 HR 74 sitting> 86/56 Hr 74 Sitting> 80/44 heart rate 30s(while Passed out in chair)-vitals per daughter Venessa at bedside states Physical therapist was there when patient passed out
-Check CT head
-Check orthostatics
BP in ER 103/73> 144/59
-Continue carvedilol 25 mg twice daily, nifedipine 30 mg in a.m., 60 mg at bedtime -with hold parameters
-IV NSS 60 cc/hr
- fall precautions
-PT/OT/case management consult
EKG: Ventricular paced rhythm 64 bpm
#Hypocalcemia unclear etiology
Calcium 6.9 > corrected calcium 8.1
-Calcium gluconate
-Follow calcium level in a.m.
-Check PTH, vitamin D level
#Acute hypokalemia 2/2 diarrheal losses/hypovolemia
Potassium 3.4
-Will give KCl 40 mEq
-Check potassium level in a.m.
#Acute hypomagnesemia diarrheal losses/hypovolemia
Magnesium 1.4 will replace with 2 g mag rider
-Check mag level in a.m.
#Hypophosphatemia unclear etiology
-Phos 2.4
#Acute on chronic anemia normocytic
#Acute thrombocytopenia-unclear
PLT 125 <140 22 August 2023
-Hgb 10.1 appears baseline for patient
-Follow CBC
#Permanent pacemaker�SSS
Pacemaker interrogated in ER no arrhythmias seen
#Hx mitral valve replacement
#CKD 3B
Creat 1.3 patient's range 1.7�1.8
-Follow BMP
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
#History of old CVAs per [facility] CT head
-Is to be on lifelong Plavix 75 mg daily
-Continue statin, Plavix 75 mg daily
#Seizure hx July 2023 before stroke
-Continue Keppra 500 mg twice daily
#HLD
-Continue Vascepa 2 g p.o. twice daily, Zetia 10 mg daily, atorvastatin 80 mg every afternoon
#GERD
-Continue Protonix 40 mg every afternoon
#Hx prostate cancer
#Radiation September 2023
-Was on prior Orgovyx 120 mg daily
#Insomnia
-No current meds
Dvt proph
scd's
Full code per patient with Iva and daughter Venessa at bedside
[2024-02-08 17:22] LABS: Vitamin D, 25-OH*** 30.6 ng/mL (30-80)
[2024-02-08 17:36] LABS: TSH Reflex To Free T4 1.62 uIU/ml (0.47-4.68)
--- NOTE | 2024-02-08 17:40 | W.PN.UPDATE ---
Update Note
Progress Note Update
This note serves as an addendum to the H&P by academic specialist KEI Lacie WELLS
HPI
83M HX CAD, 5 Vessel CABG, PPM, Lt sided CVA with Rt distal UEx weakness in july 2023, new onset one episode Sz disorder prior to CVA, HTN, CKD3B seen at ER:
- ongoing loose BMs - non bloody loose dark brown once each day on Thursday and Thu last week
- Reports passing out preceded by lightheadedness while working with home PT/OT
- [facility] EMS for syncope
- While sitting before PT/OT : BP 116/74 HR 74 before PT/OT
- After 15 Mins of PT/ OT: 86/56 HR 71
- When he passed out siting up BP 80/44
- Noted passed out while sitting witnessed by PT/OT
- HX vasovagal syncope
ROS
Denies recalling any chest pain shortness of breath abdominal pain.
Denies any headache.
No vomiting.
No recent fever.
PHX; as above
Reviewed VS: HR mid 60s BP 145/60
PE
General: Comfortable and Conversant
HEENT: Normocephalic, Anicteric, Moist mucous membranes, PERRLA
Respiratory: CTA , no additional sound
Cardiac: S1/S2, RRR
Breast: Deferred by me
GI: Soft, Non Tender, Non Distended, Normal Bowel Sounds and No Hepatosplenomegaly
Rectal: Deferred by Provider
Genito-urinary: Deferred by me
Musculoskeletal: No Edema
Skin: Warm and Dry; No Rash or Jaundice
Neuro: AO x 3 (Has some short-term memory impairment), Nonfocal/grossly intact and No Sensory Deficits;
No No Motor Deficits, No Slurred Speech, No Facial Droop
Psych: Calm
Data
Nl WCC
Hgb 10.1 - bl is mid to hi 10s
Plt 125
Na 142
K 3.4
Mg 1.4
Ca 6.9
Phos 2.4
Cl 120
CO2 15
VBG
pH 7.31, pCO2 45 pO2 56
Primary chronic Resp acidosis with secondary metabolic acidosis. Non AG metabolic acidosis
BUN 28
Cr 1.3 - bl Cr 1.7s
eGFR 55 - bl 40 c/w CKD3b
Pending Vit D 25
Pending TSH
Pending PTH
Pending HCT
EKG
Ventricular-paced rhythm
ABNORMAL ECG
WHEN COMPARED WITH ECG OF 29-AUG-2023 22:56,
VENT. RATE HAS DECREASED BY 12 BPM
ASSESSMENT & PLAN
Syncope associated with significant postural hypotension
Postural hypotension suspect due to dehydration +/_autonomic neuropathy s/p CVA
Acute electrolyte depletion ? due to recent diarrhea loss
Acid base dysfunction ( Primary chronic Resp acidosis with secondary metabolic acidosis plus MG MA)
Mild Hypokalemia
Hypomagnesemia
Hypophosphatemia
Hypocalcemia - corrected for Albumin Ca 8.1
- s/p IV Cong G 1 gm, IV Mg [place] 2gm, PO KCL 40
- Repeat Ca, K, Mg at mid night
- IV NS 60/H
- Pending HCT
HX CKD 3B: Creat 1.6 is at baseline. Today is 13
- follows with [employer] in [facility]
Benign HTN
- on ROOM SERVICE SUPERVISOR Carvedilol 25 mg BID and amlodipine 10 mg daily
HX recent new onset seizures (Jul 17 2023 ) was treated at [facility] but per had normal EEG
- on ROOM SERVICE SUPERVISOR Keppra 500 mg every 12 hours
Recent Lt CVA/TIA with Rt handed weakness in Aug 01 2023
HX strokes was revealed on CT head imaging at [facility]
HX HLD
Of note: Patient cannot have an MRI as his PPM is NOT MRI conditional
- on lifelong Plavix , not on ASA
- Atorvastatin 80 mg QPM
- c/w ROOM SERVICE SUPERVISOR Vascepa( Modified [place] 3) 2 g twice daily
- c/w Zetia 10 mg daily
HX CAD/DE/CABG x 5 vessel 2018
No chest pain
- cont. Plavix daily, Lipitor, beta-claudia
Permanent pacemaker/Hx heart block
- 3rd Pacemaker NOT MRI compatible per Pt and
HX Prostate cancer - f/u at [facility] Urology/ Dr Aguero
S/p completion of XRT @ [facility] On[facility]
Normocytic anemia
Known HX GI bleeding
Stable Hgb around low 10s
DVT Px: SCD
Full code
Ip TLM
[2024-02-08] MEDS: KCL 40 MEQ PO (18:31)
[2024-02-08] MEDS: MAGNESIUM SULFATE 50 IV (18:31)
[2024-02-08] MEDS: NSS 1000 IV (21:04)
[2024-02-08] MEDS: COREG 25 MG PO (21:13)
[2024-02-08] MEDS: PROCARDIA XL (EXTENDED RELEASE) 60 MG PO (21:15)
[2024-02-08] MEDS: KEPPRA 500 MG PO (21:16)
[2024-02-08] MEDS: PROTONIX 40 MG PO (21:16)
[2024-02-08] MEDS: LIPITOR 80 MG PO (21:16)
--- NOTE | 2024-02-08 21:30 | TRANSFER ---
pt arrived from ED via stretcher accompanied by staff. pt was a pullover from stretcher to bed. AAOx3 upon arrival- TE-MOAK and can be forgetful. VSS except elevated BP at 168/77. evening BP meds given and BP came down to 123/60. pt resting comfortably
in bed. oriented to room, call esquivel within reach. POC ongoing.
--- NOTE | 2024-02-08 23:10 | VATNOTE ---
late entry: pt did not want his phs iv restarted. wishes honored.
[2024-02-09] VITALS (8 sets, daily range): BP systolic 97–154; BP diastolic 45–68; PULSE 63–81; O2SAT 99–100; BMI 24.2
[2024-02-09 00:03] LABS: Calcium 9.3 mg/dl (8.4-10.2); Magnesium 2.4 mg/dl (1.6-2.3); Potassium 4.6 mmol/L (3.5-5.1)
--- NOTE | 2024-02-09 06:33 | W.PN.HOSP.TC ---
Today's Communication/Plan
-
monitor off IVF
PT/OT
fall precautions
discharge planning tomorrow home with home services if remains stable/continues to improve
Assessment / Plan
Assessment / Plan
Physical Exam
General: Comfortable and Conversant; No Pain, Fever or Chills
HEENT: NormoCephalic, Anicteric, Moist mucous membranes, PERRLA, [place] Conjunctivae and No Ptosis
Respiratory: Clear; No Wheezes, Rales or Rhonchi
Cardiac: S1/S2 and Regular Rhythm; No Murmur, Rub, Gallop or Peripheral Edema
GI: Soft, Non Tender, Non Distended, Normal Bowel Sounds and No Hepatosplenomegaly
Musculoskeletal: No Clubbing, No Cyanosis and No Edema
Skin: Warm and Dry; No Rash or Jaundice
Neuro: AO x 3
Psych: Calm
# Vasovagal syncope/orthostatic hypotension/Hx HTN�benign
-symptomatically improved with IVF and electrolyte repletions, IVF support completed
-CT head appreciated no acute abn's
-Orthostatic hypotension remains present though improved from prior reports, monitor
-Continue carvedilol 25 mg twice daily, nifedipine 30 mg in a.m., 60 mg at bedtime -with hold parameters
-fall precautions
-PT/OT appreciated home services
#Hypocalcemia
#hypokalemia
#hypomagnesemia
#Hypophosphatemia
suspect 2/2 to diarrhea since resolved at this time
monitor and replete as necessary
Vit D and PTH appreciated wnl
#chronic anemia normocytic
#Mild acute thrombocytopenia resolved
H&H appears baseline at this time
monitor
#Permanent pacemaker�SSS
Pacemaker interrogated in ER no arrhythmias seen
#Hx mitral valve replacement
#CKD 3B
monitor renal function
appears stable at this time
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
#History of old CVAs per [facility] CT head
-Is to be on lifelong Plavix 75 mg daily
-Continue statin, Plavix 75 mg daily
#Seizure hx July 2023 before stroke
-Continue Keppra 500 mg twice daily
#HLD
-Continue Vascepa 2 g p.o. twice daily, Zetia 10 mg daily, atorvastatin 80 mg every afternoon
#GERD
-Continue Protonix 40 mg every afternoon
#Hx prostate cancer
#Radiation September 2023
-Was on prior Orgovyx 120 mg daily
Dvt proph scd's
Full Code
Discussed with patient, patient's and daughter
I spent a total of 40 minutes with the patient or on the floor. More than 50% of this time involved counseling and coordination of care.
Anticipated Discharge: Within 24 hours
Subjective/Interval History
-
Date of Service: February 09, 2024
No acute distress sitting up comfortably in chair. and daughter at bedside, patient noted symptomatically improved. Overall patient reports feeling well.
Objective Data
-
Labs:
Laboratory Results
02/08/24 02/09/24
23:41 06:00
WBC Pending
Hgb Pending
Hct Pending
Plt Count Pending
Sodium Pending
Potassium 4.6 D Pending
Chloride Pending
Carbon Dioxide Pending
BUN Pending
Creatinine Pending
Glucose Pending
Calcium 9.3 D Pending
Total Bilirubin Pending
AST Pending
ALT Pending
Alkaline Phosphatase Pending
Vital Signs:
Vital Signs
Temp Pulse Resp BP Pulse Ox
97.6 F 65 20 124/59 98
02/09/24 03:42 02/09/24 03:42 02/09/24 03:42 02/09/24 03:42 02/09/24 03:42
--- NOTE | 2024-02-09 08:22 | VATNOTE ---
Pt with prehospital IV. pt informed of hospitals P&P regarding out of hospital IVs, despite education pt continues to refuse new site. current operating without issue at the moment with no signs of infection.
[2024-02-09 08:27] LABS: % Basophils 0.6 % (0-2); % Eosinophils 3.3 % (0-6); % Immature Granulocytes 0.3 % (0-0.5); % Lymphocytes 8.4 % (20.5-51.1); % Monocytes 8.7 % (1.7-9.3); % Neutrophils 78.7 % (42.2-75.2); Absolute Eosinophils 0.2 10^3/uL (0-0.7); Absolute Lymphocytes 0.5 10^3/uL (1.2-3.4); Absolute Monocytes 0.6 10^3/uL (0.1-0.6); Absolute Neutrophils 5.1 10^3/uL (1.4-6.5); Hematocrit 33.3 % (39.0-52.0); Hemoglobin 11.2 g/dL (13.0-18.0); Mean Corp Hgb Conc. 33.6 g/dL (33.0-37.0); Mean Corpuscular Hgb 31.5 pg (27.0-31.0); Mean Corpuscular Volume 93.8 fL (80.0-94.0); Mean Platelet Volume 11.5 fL (7.4-10.4); Nucleated Red Blood Cells % 0 % (-); Platelet Count 135 10^3/uL (130-400); Red Blood Cell Count 3.55 10^6/uL (4.70-6.10); Red Cell Dist. Width 13.9 % (11.5-14.5); White Blood Cell Count 6.5 10^3/uL (4.8-10.8)
[2024-02-09 08:52] LABS: ALT (SGPT) 49 U/L (0-50); AST (SGOT) 46 U/L (17-59); Albumin 3.9 g/dl (3.5-5.0); Alkaline Phosphatase 52 U/L (38-126); Blood Urea Nitrogen 28 mg/dl (9-20); Calcium 9.3 mg/dl (8.4-10.2); Carbon Dioxide 22 mmol/L (22-30); Chloride 108 mmol/L (98-107); Estimated Creatinine Clearance 38 ml/min; Glucose 132 mg/dl (70-99); Magnesium 2.3 mg/dl (1.6-2.3); Potassium 4.5 mmol/L (3.5-5.1); Sodium 140 mmol/L (135-145); Total Bilirubin 1.7 mg/dl (0.2-1.3); Total Protein 6.5 g/dl (6.3-8.2); eGFR 42.75
[2024-02-09] MEDS: PROCARDIA XL (EXTENDED RELEASE) 30 MG PO (09:12)
[2024-02-09] MEDS: ZETIA 10 MG PO (09:12)
[2024-02-09] MEDS: COREG 25 MG PO ×2 (09:12→20:51)
[2024-02-09] MEDS: KEPPRA 500 MG PO ×2 (09:13→20:52)
[2024-02-09] MEDS: PLAVIX 75 MG PO (09:13)
[2024-02-09 14:41] LABS: Intact PTH 54.3 pg/ml (13.6-85.8)
--- NOTE | 2024-02-09 16:41 | CM ---
CM met with pt at bedside to complete IA, He lives with his in a one story home. No steps to enter.
Some assist needed with ADL's, ambulatory with rolling walker
DME - rolling walker, shower chair, elevated toilet seat, grab bars in shower and at toilet.
Has had [facility] for RN/PT/OT in the past.
Plan: CM to follow for discharge planning needs.
PCP - Dr Marco A Rashid
Pharm - [facility]
[2024-02-09] MEDS: LIPITOR 80 MG PO (17:55)
[2024-02-09] MEDS: PROTONIX 40 MG PO (17:55)
[2024-02-09] MEDS: PROCARDIA XL (EXTENDED RELEASE) 60 MG PO (20:51)
--- NOTE | 2024-02-10 03:57 | DOWNTIME ---
There was a [employer] Client [employer] Operator Downtime on 02/10/2024 from 0100 to 02/10/2024 at 0350. Downtime documentation of patient's care, including medication administrations, has been reconciled in the electronic record per guidelines. Refer to the
patient's paper chart under the miscellaneous tab to see printed paper medication records and downtime forms.
[2024-02-10 03:58] VITALS: BP 124/64
[2024-02-10 06:00] VITALS: BMI 24.1
--- NOTE | 2024-02-10 07:10 | W.PN.HOSP.TC ---
Today's Communication/Plan
-
discharge
Assessment / Plan
Assessment / Plan
Physical Exam
General: Comfortable and Conversant; No Pain, Fever or Chills
HEENT: NormoCephalic, Anicteric, Moist mucous membranes, PERRLA, [place] Conjunctivae and No Ptosis
Respiratory: Clear; No Wheezes, Rales or Rhonchi
Cardiac: S1/S2 and Regular Rhythm; No Murmur, Rub, Gallop or Peripheral Edema
GI: Soft, Non Tender, Non Distended, Normal Bowel Sounds and No Hepatosplenomegaly
Musculoskeletal: No Clubbing, No Cyanosis and No Edema
Skin: Warm and Dry; No Rash or Jaundice
Neuro: AO x 3
Psych: Calm
83M hx HTN Chronic Anemia SSS ppm MVR CKD3 CVA sz HLD GERD hx prostate Ca here for evaluation syncope likely combination poor oral intake/hydration and diarrhea illness suspect viral since resolved.
# Vasovagal syncope/orthostatic hypotension/Hx HTN�benign
-symptomatically improved with IVF and electrolyte repletions, IVF support completed
-CT head appreciated no acute abn's
-Orthostatic hypotension resolved
-Continue carvedilol 25 mg twice daily, nifedipine 30 mg in a.m., 60 mg at bedtime -with hold parameters
-fall precautions
-PT/OT appreciated home services (patient and report they already have available at home)
#Hypocalcemia
#hypokalemia
#hypomagnesemia
#Hypophosphatemia
suspect 2/2 to diarrhea since resolved at this time
monitor and replete as necessary
Vit D and PTH appreciated wnl
#chronic anemia normocytic
#Mild acute thrombocytopenia resolved
H&H appears baseline at this time
monitor
#Permanent pacemaker�SSS
Pacemaker interrogated in ER no arrhythmias seen
#Hx mitral valve replacement
#CKD 3B
monitor renal function
appears stable at this time
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
#History of old CVAs per [facility] CT head
-Is to be on lifelong Plavix 75 mg daily
-Continue statin, Plavix 75 mg daily
#Seizure hx July 2023 before stroke
-Continue Keppra 500 mg twice daily
#HLD
-Continue Vascepa 2 g p.o. twice daily, Zetia 10 mg daily, atorvastatin 80 mg every afternoon
#GERD
-Continue Protonix 40 mg every afternoon
#Hx prostate cancer
#Radiation September 2023
-Was on prior Orgovyx 120 mg daily
Dvt proph scd's
Full Code
Medically stable for discharge home with outpatient follow up recommendations.
Discussed with patient and patient's Iva
Total Time Preparing Discharge ___40____ minutes including examination of the patient, summary of the hospital stay, instructions for continuing care to all relevant caregivers; and preparation of discharge records, prescriptions, and referral
forms if necessary.
Anticipated Discharge: Today
Subjective/Interval History
-
Date of Service: February 10, 2024
Seen and examined at bedside in no acute distress sitting up comfortably in chair. Reports overall feeling well. Symptoms resolved. Orthostatic hypotension resolved. Denies new acute issues. Eager to go home.
Objective Data
-
Labs:
Laboratory Results
02/10/24
06:00
WBC Pending
Hgb Pending
Hct Pending
Plt Count Pending
Sodium Pending
Potassium Pending
Chloride Pending
Carbon Dioxide Pending
BUN Pending
Creatinine Pending
Glucose Pending
Calcium Pending
Total Bilirubin Pending
AST Pending
ALT Pending
Alkaline Phosphatase Pending
Vital Signs:
Vital Signs
Temp Pulse Resp BP Pulse Ox
98.1 F 70 16 124/64 97
02/10/24 03:58 02/10/24 03:58 02/10/24 03:58 02/10/24 03:58 02/10/24 03:58
I&O
02/09/24 02/10/24 02/11/24
06:59 06:59 06:59
Intake Total 240 / 240 860 / 860
Balance 240 / 240 860 / 860
[2024-02-10] MEDS: ZETIA 10 MG PO (07:20)
[2024-02-10] MEDS: KEPPRA 500 MG PO (07:20)
[2024-02-10] MEDS: PROCARDIA XL (EXTENDED RELEASE) 30 MG PO (07:21)
[2024-02-10] MEDS: PLAVIX 75 MG PO (07:28)
[2024-02-10] MEDS: COREG 25 MG PO (07:28)
[2024-02-10 07:30] VITALS: BP 114/64
[2024-02-10 08:13] LABS: % Basophils 0.6 % (0-2); % Eosinophils 4.7 % (0-6); % Immature Granulocytes 0.5 % (0-0.5); % Lymphocytes 7.6 % (20.5-51.1); % Monocytes 8.7 % (1.7-9.3); % Neutrophils 77.9 % (42.2-75.2); Absolute Eosinophils 0.3 10^3/uL (0-0.7); Absolute Lymphocytes 0.5 10^3/uL (1.2-3.4); Absolute Monocytes 0.6 10^3/uL (0.1-0.6); Absolute Neutrophils 5.1 10^3/uL (1.4-6.5); Hematocrit 31.7 % (39.0-52.0); Hemoglobin 10.9 g/dL (13.0-18.0); Mean Corp Hgb Conc. 34.4 g/dL (33.0-37.0); Mean Corpuscular Hgb 31.6 pg (27.0-31.0); Mean Corpuscular Volume 91.9 fL (80.0-94.0); Mean Platelet Volume 10.9 fL (7.4-10.4); Nucleated Red Blood Cells % 0 % (-); Platelet Count 131 10^3/uL (130-400); Red Blood Cell Count 3.45 10^6/uL (4.70-6.10); Red Cell Dist. Width 13.8 % (11.5-14.5); White Blood Cell Count 6.6 10^3/uL (4.8-10.8)
[2024-02-10 11:07] LABS: ALT (SGPT) 44 U/L (0-50); AST (SGOT) 32 U/L (17-59); Albumin 3.8 g/dl (3.5-5.0); Alkaline Phosphatase 51 U/L (38-126); Blood Urea Nitrogen 30 mg/dl (9-20); Calcium 9.3 mg/dl (8.4-10.2); Carbon Dioxide 24 mmol/L (22-30); Chloride 104 mmol/L (98-107); Estimated Creatinine Clearance 36 ml/min; Glucose 118 mg/dl (70-99); Magnesium 2.2 mg/dl (1.6-2.3); Phosphorus 3.6 mg/dl (2.5-4.5); Potassium 4.7 mmol/L (3.5-5.1); Sodium 138 mmol/L (135-145); Total Bilirubin 1.4 mg/dl (0.2-1.3); Total Protein 6.4 g/dl (6.3-8.2); eGFR 39.75
[2024-02-10 12:11] VITALS: BP 100/50; BP 104/56; BP 92/55; PULSE 62; PULSE 65; PULSE 72
--- NOTE | 2024-02-10 14:09 | W.DCSUMMARY ---
Discharge Summary
Discharge Data
Date of Admission: 02/08/24
Date of Discharge: 02/10/24
-
Pending Results: No
Discharge Plan
-
Patient Disposition: Home with Home Care
Discharge Diagnosis/Procedures: Vasovagal syncope
orthostatic hypotension resolved
Hypocalcemia resolved
hypokalemia resolved
hypomagnesemia resolved
Hypophosphatemia resolved
Electrolyte abnormalities as above likely due to acute diarrhea illness since resolved
Condition: Fair
Diet: Regular
Activity: As tolerated and With Walker
Driving Restrictions: No driving
Bathing Restrictions: None
Blood Work: Please repeat BMP, Magnesium, and Phosphate levels with primary care provider in 1 week of discharge.
Other Services: PT and OT
Activity Restrictions/Additional Instructions:
Please follow up with your primary care provider in 1 week of discharge.
Try to stay well hydrated, at least 64 oz of water a day.
Referrals:
Abby Rashid, DO [Family Provider] - in one week
Prescriptions:
Continued
atorvastatin 80 mg Tablet
80 mg PO QPM
carvedilol 25 mg Tablet
25 mg PO BID
levetiracetam 500 mg Tablet
500 mg PO Q12H
pantoprazole 40 mg Tablet,Delayed Release (Dr/Ec)
40 mg PO QPM
ezetimibe 10 mg Tablet
10 mg PO DAILY
icosapent ethyl [Vascepa] 1 gram Capsule
2 g PO BID
nifedipine 30 mg Tablet Extended Release
30 mg PO DAILY 30 Days Qty: 30 0RF
clopidogrel 75 mg Tablet
75 mg PO DAILY 30 Days Qty: 30 0RF
nifedipine 30 mg tablet extended release
60 mg PO HS 30 Days Qty: 60 0RF
Discharge Orders:
Discharge Patient (As Directed); Ordered 02/10/24
Ordered By: Nila Isidro
Discharge Date and Time
Print Language: MARTINIQUAIS
--- NOTE | 2024-02-10 15:46 | CM ---
KAMRYN met with Rolando prior to discharge today. Previously known to [facility], but not in a couple of years. He is (I) amb and adls, denies needs for discharge at this time.
== END 2024-02-10 15:09 | disposition home or self-care (01) | DRG 312 ==
LOC: 4 EAST ACU 17:28
PROVIDERS: Clinical Nurse Specialist Family Health; ADMITTING PHYSICIAN Internal Medicine; ATTENDING PHYSICIAN Internal Medicine; EMERGENCY PHYSICIAN Emergency Medicine; FAMILY PHYSICIAN Internal Medicine
DX: I95.1 Orthostatic hypotension (principal); E87.20 Acidosis, unspecified; J96.12 Chronic respiratory failure with hypercapnia; R19.7 Diarrhea, unspecified; N18.32 Chronic kidney disease, stage 3b; I12.9 Hypertensive chronic kidney disease with stage 1 through stage 4 chronic kidney disease, or unspecified chronic kidney disease; E83.51 Hypocalcemia; I25.10 Atherosclerotic heart disease of native coronary artery without angina pectoris; E87.6 Hypokalemia; E83.42 Hypomagnesemia; E83.39 Other disorders of phosphorus metabolism; G47.00 Insomnia, unspecified; D69.6 Thrombocytopenia, unspecified; D64.9 Anemia, unspecified; E78.5 Hyperlipidemia, unspecified; I45.9 Conduction disorder, unspecified; K21.9 Gastro-esophageal reflux disease without esophagitis; G40.909 Epilepsy, unspecified, not intractable, without status epilepticus; Z85.46 Personal history of malignant neoplasm of prostate; Z79.02 Long term (current) use of antithrombotics/antiplatelets; Z95.0 Presence of cardiac pacemaker; Z95.1 Presence of aortocoronary bypass graft; Z90.49 Acquired absence of other specified parts of digestive tract; Z86.73 Personal history of transient ischemic attack (TIA), and cerebral infarction without residual deficits; Z80.0 Family history of malignant neoplasm of digestive organs; Z82.0 Family history of epilepsy and other diseases of the nervous system; Z92.3 Personal history of irradiation; Z95.2 Presence of prosthetic heart valve
CPT/HCPCS: 70450; 80053; 82306; 82310; 82805; 83735; 83970; 84100; 84132; 84443; 84484; 85025; 93005; 93288; 96374; 97163; 97166; 99285

== ENCOUNTER → 2024-03-18 10:44 | Outpatient (REF) | payer MEDICARE, OTHER, SELFPAY ==
[2024-03-18 16:07] LABS: % Basophils 0.4 % (0-2); % Eosinophils 3.1 % (0-6); % Immature Granulocytes 0.3 % (0-0.5); % Lymphocytes 6.5 % (20.5-51.1); % Monocytes 8.7 % (1.7-9.3); Absolute Eosinophils 0.2 10^3/uL (0-0.7); Absolute Lymphocytes 0.4 10^3/uL (1.2-3.4); Absolute Monocytes 0.6 10^3/uL (0.1-0.6); Absolute Neutrophils 5.5 10^3/uL (1.4-6.5); Hematocrit 29.9 % (39.0-52.0); Hemoglobin 9.7 g/dL (13.0-18.0); Mean Corp Hgb Conc. 32.4 g/dL (33.0-37.0); Mean Corpuscular Hgb 31.9 pg (27.0-31.0); Mean Corpuscular Volume 98.4 fL (80.0-94.0); Mean Platelet Volume 11.6 fL (7.4-10.4); Nucleated Red Blood Cells % 0 % (-); Platelet Count 160 10^3/uL (130-400); Red Blood Cell Count 3.04 10^6/uL (4.70-6.10); Red Cell Dist. Width 15.4 % (11.5-14.5); White Blood Cell Count 6.8 10^3/uL (4.8-10.8)
[2024-03-18 16:13] LABS: ALT (SGPT) 54 U/L (0-50); AST (SGOT) 36 U/L (17-59); Albumin 3.8 g/dl (3.5-5.0); Alkaline Phosphatase 66 U/L (38-126); Blood Urea Nitrogen 40 mg/dl (9-20); Calcium 8.9 mg/dl (8.4-10.2); Carbon Dioxide 26 mmol/L (22-30); Chloride 108 mmol/L (98-107); Glucose 151 mg/dl (70-99); Potassium 4.7 mmol/L (3.5-5.1); Sodium 140 mmol/L (135-145); Total Bilirubin 1.6 mg/dl (0.2-1.3); Total Protein 6.2 g/dl (6.3-8.2); eGFR 39.75
[2024-03-18 16:17] LABS: Erythrocyte Sed Rate 35 mm/hour (0-20)
[2024-03-18 16:51] LABS: C-Reactive Protein < 5.00 mg/L (0.0-10.00)
== END ==
LOC: HWLAB 10:44
PROVIDERS: ATTENDING PHYSICIAN Psychiatry & Neurology Neurology; FAMILY PHYSICIAN Internal Medicine
DX: I63.9 Cerebral infarction, unspecified (principal)
CPT/HCPCS: 36415; 80053; 85025; 85652; 86140